=== PATIENT | male | born 1995 | race Two or more races ===

== ENCOUNTER → 2021-01-26 13:45 | Outpatient (BNVA) | payer OTHER, SELFPAY | PROVIDERS: PCP Internal Medicine; Visit Provider Internal Medicine | DX: S51.852A Open bite of left forearm, initial encounter (principal); W50.3XXA Accidental bite by another person, initial encounter | CPT/HCPCS: 36415; 86706; 99203 ==

== ENCOUNTER → 2021-01-28 13:07 | Outpatient (BNVA) | payer OTHER, SELFPAY | PROVIDERS: PCP Internal Medicine; Visit Provider Physician Assistant | DX: S51.852A Open bite of left forearm, initial encounter (principal); W50.3XXA Accidental bite by another person, initial encounter; Z23 Encounter for immunization | CPT/HCPCS: 90746; 99213 ==

== ENCOUNTER → 2021-02-27 08:13 | Outpatient (BNVA) | payer OTHER, SELFPAY | PROVIDERS: PCP Internal Medicine | DX: T14.8XXD Other injury of unspecified body region, subsequent encounter (principal); W50.3XXD Accidental bite by another person, subsequent encounter; Z23 Encounter for immunization ==

== ENCOUNTER → 2021-07-14 14:56 | Outpatient (BNVA) | payer OTHER, SELFPAY | PROVIDERS: PCP Internal Medicine | DX: T14.8XXD Other injury of unspecified body region, subsequent encounter (principal); W50.3XXD Accidental bite by another person, subsequent encounter; Z23 Encounter for immunization | CPT/HCPCS: 99211 ==

== ENCOUNTER → 2024-05-07 15:11 | Outpatient (BNVA) | payer BC, SELFPAY | PROVIDERS: PCP Internal Medicine; Visit Provider Physician Assistant Surgical ==

== ENCOUNTER → 2024-06-01 14:26 | Outpatient (BNVA) | payer OTHER, SELFPAY | PROVIDERS: Visit Provider Physician Assistant Medical | DX: T54.1X1A Toxic effect of other corrosive organic compounds, accidental (unintentional), initial encounter (principal); Y92.9 Unspecified place or not applicable | CPT/HCPCS: 99203 ==

== ENCOUNTER 2025-02-27 05:56 | Emergency (ER) | payer BC, SELFPAY ==
[2025-02-27 06:07] VITALS: BP 116/63; PULSE 109; RESP 16; TEMP 37.3; O2SAT 92; BMI 54.5
--- NOTE | 2025-02-27 06:23 | PC.NURSE ---
Pt comes today with reports of worsening groin rash. Pt seen at 02/26, given two dose of Fluconazole of which he has finished, along with nystation lotion (applied at least 7 times per pt) Pt inner thighs, testical area ivonne, moist, and small blister areas noted, pt reporting those started last night. Denies recent STI exposure, denies and exposure to chemicals/environmental factors. Pt reports pain with urination as well as pain when urinating on skin areas. Call fowler within reach, lights dimmed, pt changed over, basic labs/urine ordered. Pt awaiting ED provider at this time.
[2025-02-27 06:44] LABS: MANUAL DIFF FLAG NO
[2025-02-27 06:45] LABS: Hematocrit 41.9 % (42.0-52.0); Hemoglobin 13.9 g/dl (14.0-18.0); Imm Gran Abs Auto 0.02 X10*3/uL (0.00-0.03); Imm Gran Pct Auto 0.3 % (0.0-0.4); Lymphocytes Absolute Auto 1.8 X10*3/uL (1.2-4.9); Mean Corpuscular HGB Conc 33.2 g/dl (31.0-36.0); Mean Corpuscular Hemoglobin 26.4 pg (27.0-33.0); Mean Corpuscular Volume 79.7 fL (80.0-98.0); NRBC Abs Auto 0.000 X10*3/uL (0.0-0.012); NRBC Pct Auto 0.0 /100WBC (0.0-0.2); Platelet Count 174 X10*3/uL (160-400); Red Blood Count 5.26 X10*6/uL (4.60-5.80); White Blood Count 7.9 X10*3/uL (4.8-10.8)
--- OUTSIDE RECORDS SUMMARY | 2025-02-27 06:51 | XMS_ITS | Clinical Summary ---
Author Organization [facility] Address [address] [place] [phone] Phone Care Team Providers Care Security Flex Officer Name Role Phone Susie Lemus MD Primary Care Provider [phone] Susie Lemus MD Unavailable [phone] Social History Tobacco Use Types Packs/Day Years Used Date Smoking Tobacco: Never Assessed Education Answer Date Recorded Are you interested in more education? Not on [place] e 11/26/2022 Are you concerned about learning? Not on file 11/26/2022 No 11/26/2022 No 11/26/2022 Digital Access Answer Date Recorded No 12/27/2022 No 12/27/2022 No 12/27/2022 Reliable internet access at home? Not on file 12/27/2022 Device with a working camera? Not on file Sex and Gender Information Value Date Recorded Sex Assigned at Not on file Legal Sex Male 8:55 PM EDT Gender Identity Not on file Sexual Orientation Not on file Plan of Treatment Not on file Medical Devices Not on file [facility] [place] [address] [place] [address] HMO POS HMO POS [place] [address] [place] [address] [place] [address] [place] [address] HMO POS HMO POS Care Teams Security Flex Officer Relationship Specialty Start Date End Date Susie Lemus MD [address] [place] [phone] PCP - General Internal Medicine 05/08/18 Susie Lemus MD [address] [place] [phone] Insurance Assigned Provider 11/05/23 Additional Source Comments The information contained in this document represents components of the legal health record. It is not the complete legal health record.[facility]
--- OUTSIDE RECORDS SUMMARY | 2025-02-27 06:51 | XMS_ITS | Encounter Summary ---
Author Organization [facility] Address [address] [place] [address] Phone Care Team Providers Care Improvement Lead Name Role Phone Daniel Hernandez MD Primary Care Provider [phone] Encounter Details Date Type Department Care Team (Late st Contact Info) Description 03/09/2017 Conversion Encounter [facility] - [address], [address] [place] [address] Daniel Hernandez MD [address] [place] [address] Social History Tobacco Use Types Packs/Day Years Used Date Smoking Tobacco: Never Assessed Sex and Gender Information Value Date Recorded Sex Assigned at Not on file Legal Sex Male 11:06 PM EST Gender Identity Not on file Sexual Orientation Not on file documented as of this encounter Plan of Treatment Not on file documented as of this encounter Visit Diagnoses Not on filedocumented in this encounter Care Teams Improvement Lead Relationship Specialty Start Date End Date Daniel Hernandez MD [address] [place] [address] PCP - General 09/21/16 02/15/21 documented as of this encounter
[2025-02-27 06:56] LABS: Anion Gap 13 (12-20); Blood Urea Nitrogen 11 mg/dL (9-16); Calcium 8.4 mg/dL (8.4-10.2); Carbon Dioxide 23 mmol/L (22-29); Chloride 102 mmol/L (96-108); Creatinine Clr Calc Pharmacy 292.9; Estimated Glomerular Filt Rate > 60; Potassium 3.9 mmol/L (3.3-5.1); Sodium 134 mmol/L (135-145)
--- NOTE | 2025-02-27 07:04 | ED.GENADULT ---
HPI - General Adult General Chief complaint: General Medical Stated complaint: yeast infection in groin Time Seen by Provider: 02/27/25 07:04 Source: patient Mode of arrival: ambulatory Limitations: no limitations History of Present Illness ED Provider: [facility] narrative: This is a 30-year-old male with history of morbid obesity presenting with pannus redness in the abdominal folds as well as groin redness around penile area and scrotum, finished 2 dose of fluconazole just started using a statin ointment and he states he is still and discomfort, he reported subjective fevers, no concerns for STI, reports that sexual activities only with oral intercourse. Does not report being a diabetic. Related Data Previous Rx's ?Medication ?Instructions ?Recorded polymyxin B sulfate 10,000 1 drp ophthalmic (eye) QID 7 days 06/01/24 unit-trimethoprim 1 mg/mL eye drops #10 mL cephalexin 500 mg capsule 500 mg PO QID 5 days #20 caps 02/27/25 clotrimazole-betamethasone 1 1 appl topical BID 2 weeks #45 02/27/25 %-0.05 % topical cream grams oxycodone 5 mg tablet 5 mg PO Q6H PRN pain #10 tabs 02/27/25 Allergies Allergy/AdvReac Type Severity Reaction Status Date / Time BEES Allergy Intermediate SWELLING Uncoded 02/27/25 06:12 Review of Systems Constitutional: Constitutional: Reports as per [facility] Past Medical History Surgical History Hx of eye surgery Hx of foot surgery Family History Family History (Updated 05/07/24 @ 15:37 by Dian Skelton CMA) Mother No problems noted. Father Diabetes Social History Social History (Updated 05/07/24 @ 15:37 by Dian Skelton CMA) Unable to assess alcohol history related to: Unknown Alcohol intake: current Alcohol intake frequency: holidays/special occasions only Patient Tobacco Use Status: Never used Tobacco Smoked in Last 30 Days: No Use of substances other than those prescribed or required for medical reasons: No Advance Directives: No Physical Exam ED Vital Signs: Vital Signs - 24 hr 02/27/25 06:07 Temperature 99.1 F Pulse Rate 109 H Respiratory Rate 16 Blood Pressure 116/63 Pulse Oximetry 92 Oxygen Delivery Method Room Air BMI result Body Mass Index 54.5 Const Other: Alert and oriented x4 Pleasant, morbidly obese Abdominal examination is benign, in the abdominal pannus there is obvious evidence for candidal pannus Groin area: I am able to visualize patient's testicles, the penis is involuted, the areas moist, there is no evidence for vesicles, whitish discharge and erythematous testicles, no subcutaneous emphysema, of the buttocks and the perianal area without any erythema, no erythema of the thighs no purulence Testicles themselves are non swollen, scrotal sac as the only area that is involved without underlying edema or drainage or necrosis Medical Decision Making Medical Decision Making MDM Narrative: Fairly difficult to examine patient's groin area, the penis itself has not been visualize it is currently involuted, patient states that he is able to typically palpate his penis but the area has been irritated for the past 2 days, I have considered herpes, but there was no evidence for that, there was no evidence for Crystal's gangrene, and no evidence for any testicular torsion, any abscesses I am going to start him on both oral antibiotics to prevent superinfection, but also continue with the statin in the falls and clotrimazole and betamethasone with some pain medications as he is in discomfort, he is nonfebrile, see my discharge instructions regarding skin care Differential Diagnosis Differential Diagnoses: The differential diagnosis associated with the presentation includes (Yeast infection, Crystal's gangrene, cellulitis, herpes outbreak) Admission/Observation Consideration of admission/observation: Escalation of care including admission/observation considered 2022 Emergency Medicine Coding Guide from [employer] on 02/27/2025 All calculations should be rechecked by clinician prior to use RESULT SUMMARY: 4 Estimated Level of Service Problems: Moderate (4) Risk: Moderate (4) Data: Limited (3) NARRATIVE MDM: This patient's problem complexity is Moderate as patient: has an acute illness with systemic symptoms. This patient's risk is Moderate due to: overall presentation requiring evaluation for a potentially Moderate-risk process. This patient's data complexity is Limited. INPUTS: Number and Complexity ?> 6 = 4: acute illness w/systemic sx (f) Risk level ?> 3 = Moderate Tests ordered ?> 1 = 1 Tests results reviewed (excluding labs) ?> 1 = 1 Prior external notes reviewed ?> 0 = 0 Assessment requiring and independent historian ?> 0 = No Independent interpretation of tests ?> 0 = No Discussed management/test interpretation w/external professional ?> 0 = No Lab Data 02/27/25 06:40 02/27/25 06:40 Labs: Lab Results 02/27/25 Range/Units 06:40 WBC 7.9 (4.8-10.8) X10*3/uL RBC 5.26 (4.60-5.80) X10*6/uL Hgb 13.9 L (14.0-18.0) g/dl Hct 41.9 L (42.0-52.0) % MCV 79.7 L (80.0-98.0) fL MCH 26.4 L (27.0-33.0) pg MCHC 33.2 (31.0-36.0) g/dl RDW 13.7 (11.0-16.0) % Plt Count 174 (160-400) X10*3/uL MPV 9.5 (9.4-12.4) fL Immature Gran % (Auto) 0.3 (0.0-0.4) % Neut % (Auto) 63.7 (45-73) % Lymph % (Auto) 23.2 (20-40) % [place] % (Auto) 12.2 H (2-11) % Eos % (Auto) 0.3 (0-4) % Baso % (Auto) 0.3 (0-2) % Lymph # (Auto) 1.8 (1.2-4.9) X10*3/uL [place] # (Auto) 1.0 (0.1-1.2) X10*3/uL Eos # (Auto) 0.0 (0.0-0.4) X10*3/uL Baso # (Auto) 0.0 (0.0-0.2) X10*3/uL Abs Immat Gran (auto) 0.02 (0.00-0.03) X10*3/uL Absolute Neuts (auto) 5.1 (2.0-8.3) x10*3/uL Absolute Nucleated RBC 0.000 (0.0-0.012) X10*3/uL Nucleated RBC % (auto) 0.0 (0.0-0.2) /100WBC Sodium 134 L (135-145) mmol/L Potassium 3.9 (3.3-5.1) mmol/L Chloride 102 (96-108) mmol/L Carbon Dioxide 23 (22-29) mmol/L Anion Gap 13 (12-20) BUN 11 (9-16) mg/dL Creatinine 0.60 (0.5-1.4) mg/dL Estim Creat Clear Calc 292.9 Estimated GFR > 60 Random Glucose 233 H (60-115) mg/dL Calcium 8.4 (8.4-10.2) mg/dL Discharge Plan Discharge Clinical Impression: Skin yeast infection Patient Disposition: Home, Self-Care Instructions: Skin Yeast Infection (ED) Additional Instructions: Your presenting with a yeast infection in the abdominal fold area and the groin area, this is likely due to recent heat, currently your groin area is quite swollen as I discussed I was able to visualize testicles but not the penis, but the exam is consistent with yeast infection or essentially jock itch, part of the issues that the area so moist and so I recommend that you come home you get into a shower your wash the area with some type of shampoo that is not going to burn , soap and water, and then really take your time to carefully pad the area fully dry as well as getting into your penile falls even if you have to use a Q-tip,, and then I would like you to use clotrimazole ointment that has a steroid twice a day, this is not going to improve overnight, this we will take 4-5 days start start getting better but if you do not get a dry it is just going to continue being an issue, I am also starting you on antibiotics I do not think you have cellulitis but this is just in case there is supra infection, take Tylenol 975 mg every 6 hours needed for pain, ibuprofen 400 mg every 6 hours as needed for pain, use oxycodone only if you are not able to sleep, and if you have worsening symptoms concerns come back to the ER. Prescriptions: New cephalexin 500 mg capsule 500 mg PO QID 5 Days Qty: 20 0RF clotrimazole-betamethasone 1-0.05 % cream 1 appl topical BID 14 Days Qty: 45 0RF oxycodone 5 mg tablet 5 mg PO Q6H PRN (Reason: pain) Qty: 10 0RF Rx Instructions: Partial Fill upon patient request. No Action polymyxin B sulf-trimethoprim 10,000 unit- 1 mg/mL drops 1 drp ophthalmic (eye) QID 7 Days Qty: 10 0RF Print Language: Fijian
[2025-02-27] MEDS: Lidocaine 4 % Cream KIT 1 APPL TOPICAL (08:13)
[2025-02-27 08:25] VITALS: BP 116/63; PULSE 109; RESP 16; TEMP 37.3; O2SAT 92
== END 2025-02-27 08:28 | disposition home or self-care (01) ==
PROVIDERS: Emergency Provider Emergency Medicine
DX: B37.2 Candidiasis of skin and nail (principal); R21 Rash and other nonspecific skin eruption
CPT/HCPCS: 36415; 80048; 85025; 96372; 99284; J1885; J8540

== ENCOUNTER 2025-03-01 10:13 | Inpatient (IN) | payer BC, SELFPAY ==
--- NOTE | ~2025-03-01 | US_ITS ---
CLINICAL HISTORY: Scrotal swelling, erythema, pain, and fungal infec US SCROTUM WITH DOPPLER Comparison: CT/SR - CT ABDOMEN PELVIS WO IV CON - 03/03/25 08:54 EDT Findings: Right testicle normal echotexture, 4.5 x 2.9 x 2.6 cm. Left testicle normal echotexture, 4.5 x 3.4 x 3.5 cm. Normal color flow and arterial/venous spectral tracing of both testicles. 2 mm left epididymal head cyst. No epididymal head hyperemia. The right epididymal body and tail are not well seen. No hydroceles or varicoceles. Diffuse scrotal wall edema measures up to 1.3 cm in thickness on the right and 0.9 cm on the left. IMPRESSION: 1. Scrotal wall edema. No suspicious echogenic foci that can be seen with necrotizing fasciitis. 2. No acute testicular torsion. 3. No acute epididymo-orchitis where visualized. The right epididymis is incompletely seen. 4. No abnormal fluid collection. This document has been electronically signed by: Cassie Mejia DO on 03/03/2025 14:35:52
--- NOTE | ~2025-03-01 | CT_ITS ---
CLINICAL HISTORY: Worsening intrigenous and scrotal infection CT abdomen and pelvis without contrast Comparison: None provided Findings: Note should be made that this CT does not include the scrotum. The liver is enlarged and low in attenuation. The gallbladder, spleen, adrenal glands and pancreas are unremarkable. Kidneys, ureters and bladder are within normal limits. No bowel obstruction, free air, free fluid or abscess. Abnormally enlarged inguinal lymph nodes are present bilaterally. No acute osseous finding. Impression: Abnormally enlarged inguinal lymph nodes bilaterally. Otherwise no acute process. Note should be made that the scrotum is not included on this study. This document has been electronically signed by: Bairon Brand MD on 03/03/2025 09:47:08
[2025-03-01 10:55] VITALS: BP 126/74; PULSE 98; RESP 18; TEMP 36.7; O2SAT 95; BMI 55.2
[2025-03-01 11:00] VITALS: BP 126/74; PULSE 98; RESP 18; TEMP 36.7; O2SAT 95
--- NOTE | 2025-03-01 11:04 | ED_ITS ---
HPI - General Adult General Chief complaint: Skin/Abscess/Foreign Body Stated complaint: rash not getting better was seen on 02/27 Time Seen by Provider: 03/01/25 11:04 History of Present Illness ED Provider: Nubia ESCAMILLA narrative: The patient is a morbidly obese 30-year-old male who has been having problems with a perineal yeast infection for about a week. He was seen 4 days ago at an urgent care center and was diagnosed with a yeast balanitis and involvement of his scrotum. He was prescribed fluconazole and nystatin ointment. He took his 1st dose of fluconazole 3 days ago on Tuesday and a 2nd dose 2 days ago on Tuesday. He was not improving and he came to the emergency room here 2 days ago on Tuesday. At the emergency room visit he had lab work done that showed a glucose of 233. He does not have a history of diabetes and is on no medication. He was prescribed cephalexin and clotrimazole betamethasone. He has started the cephalexin. He says that the clotrimazole betamethasone was not available at the pharmacy yesterday but should to be available today. He was prescribed oxycodone because he has been having a lot of pain. Today he felt that there were a lot of white spots on his scrotum and in the perineal area generally. He was alarmed at this development and returned to the emergency room. He does not know if he has had a fever. No definite shaking chills. He says urination is painful because the entire area is excoriated and his penis is involuted. He says he is able to urinate however. The patient is a canales male who does not engage in anal intercourse. He does not engage in oral sex. Related Data Previous Rx's ?Medication ?Instructions ?Recorded polymyxin B sulfate 10,000 1 drp ophthalmic (eye) QID 7 days 06/01/24 unit-trimethoprim 1 mg/mL eye drops #10 mL cephalexin 500 mg capsule 500 mg PO QID 5 days #20 cap s 02/27/25 clotrimazole-betamethasone 1 1 appl topical BID 2 week s #45 02/27/25 %-0.05 % topical cream grams oxycodone 5 mg tablet 5 mg PO Q6H PRN pain #10 tab s 02/27/25 Allergies Allergy/AdvReac Type Severity Reaction Status Date / Time BEES Allergy Intermediate SWELLING Uncoded 03/01/25 10:59 Review of Systems 2 Review of Systems: Yes all other systems are reviewed and are negative [facility] Past Medical History Surgical History Hx of eye surgery Hx of foot surgery Family History Family History (Updated 05/07/24 @ 15:37 by Dian Skelton CMA) Mother No problems noted. Father Diabetes Social History Social History (Updated 05/07/24 @ 15:37 by Dian Skelton CMA) Unable to assess alcohol history related to: Unknown Alcohol intake: current Alcohol intake frequency: holidays/special occasions only Patient Tobacco Use Status: Never used Tobacco Smoked in Last 30 Days: No Use of substances other than those prescribed or required for medical reasons: No Advance Directives: No Advance Directives Information Provided: Yes Do you have a plan to hurt others: No Plan Physical Exam ED Vital Signs: Vital Signs - 24 hr 03/01/25 10:55 03/01/25 11:00 03/01/25 13:02 Temperature 98.1 F 98.1 F Pulse Rate 98 98 93 Respiratory Rate 18 18 18 Blood Pressure 126/74 126/74 149/77 H Pulse Oximetry 95 95 96 Oxygen Delivery Method Room Air Room Air Room Air BMI result Body Mass Index 55.2 Const Other: The patient is a very large 30-year-old male who was awake and alert, pleasant and cooperative. He looks mildly unwell and uncomfortable. HENMT Other: The face is symmetrical. ?Mucous membranes moist. Eyes Other: Pupils are round equal, conjunctivae are clear, extraocular movements intact Neck Neck: Yes normal visual inspection, Yes full ROM and Yes no lymphadenopathy Resp Effort & Inspection: normal respiratory effort Auscultation: clear to auscultation bilaterally Cardio Rate: regular rate Rhythm: regular rhythm Heart sounds: S1 normal heart sound present and S2 normal heart sound present GI Other: The patient has a very large abdomen with pannus folds in the lower abdomen. The abdomen is soft and nontender. The pannus folds seem to have some minimal intertrigo. Other: The patient has an involuted penis which I was unable to visualize. The scrotum is excoriated as is a lot of perineal skin generally. There are whitish plaques on the excoriated skin. Skin Other: The patient has some intertrigo in pannus folds in the lower abdomen and in the inguinal creases. The skin of the scrotum is excoriated with white patches and there is some associated excoriation of the surrounding skin. I was unable to visualize the penis which is involuted. Neuro Other: The patient is awake and alert with a normal mental status. Cranial nerves 2-12 are intact. He moves his extremities normally and appropriately. He is neurologically intact. Extrem Other: Extremities are unremarkable. No calf swelling or tenderness. Medical Decision Making Medical Decision Making [facility] Narrative: The patient is an obese 30-year-old male who was not improving despite attempts at outpatient management of a severe perineal (scrotal and penile) candidal skin infection. He has been on both oral fluconazole and topical antifungals. I believe that the manifestation of the yeast infection has worsened despite this treatment. This is likely because he has previously undiagnosed type 2 diabetes. His blood sugars in the 230s. His hemoglobin A1c is 10.8. He is not on any diabetic medications. He also has no primary care doctor. The patient does not seem septic. He does not have an elevated white count or left shift. I think this is all primarily a difficult to manage candidal infection given his obesity and his involuted penis. Local hygiene is difficult. I discussed the case with Dr. Valentino of Infectious Disease and with Dr. Jared zuluaga of Urology. Ultimately I feel the patient would be best served by hospitalization. I think his likelihood of managing this as an outpatient successfully is very low. I therefore contacted the hospitalist and the patient will be admitted. Lab Data 03/01/25 12:03 03/01/25 12:03 Labs: Lab Results 03/01/25 Range/Units 12:03 WBC 6.9 (4.8-10.8) X10*3/uL RBC 5.34 (4.60-5.80) X10*6/uL Hgb 14.2 (14.0-18.0) g/dl Hct 41.9 L (42.0-52.0) % MCV 78.5 L (80.0-98.0) fL MCH 26.6 L (27.0-33.0) pg MCHC 33.9 (31.0-36.0) g/dl RDW 13.6 (11.0-16.0) % Plt Count 191 (160-400) X10*3/uL MPV 9.1 L (9.4-12.4) fL Immature Gran % (Auto) 0.4 (0.0-0.4) % Neut % (Auto) 57.7 (45-73) % Lymph % (Auto) 31.4 (20-40) % [place] % (Auto) 10.0 (2-11) % Eos % (Auto) 0.1 (0-4) % Baso % (Auto) 0.4 (0-2) % Lymph # (Auto) 2.2 (1.2-4.9) X10*3/uL [place] # (Auto) 0.7 (0.1-1.2) X10*3/uL Eos # (Auto) 0.0 (0.0-0.4) X10*3/uL Baso # (Auto) 0.0 (0.0-0.2) X10*3/uL Abs Immat Gran (auto) 0.03 (0.00-0.03) X10*3/uL Absolute Neuts (auto) 4.0 (2.0-8.3) x10*3/uL Absolute Nucleated RBC 0.000 (0.0-0.012) X10*3/uL Nucleated RBC % (auto) 0.0 (0.0-0.2) /100WBC Sodium 138 (135-145) mmol/L Potassium 3.8 (3.3-5.1) mmol/L Chloride 103 (96-108) mmol/L Carbon Dioxide 25 (22-29) mmol/L Anion Gap 14 (12-20) BUN 14 (9-16) mg/dL Creatinine 0.64 (0.5-1.4) mg/dL Estim Creat Clear Calc 276.6 Estimated GFR > 60 Random Glucose 238 H (60-115) mg/dL Estimat Average Glucose 263 mg/dL Hemoglobin A1c % 10.8 H (<6.0) % Lactic Acid 1.5 (0.5-2.0) mmol/L Calcium 9.0 D (8.4-10.2) mg/dL Total Bilirubin 0.6 (0.0-1.0) mg/dL Direct Bilirubin 0.3 (0.0-0.5) mg/dL AST 73 H (5-37) U/L ALT 62 H (0-40) U/L Alkaline Phosphatase 63 (39-117) U/L C-Reactive Protein 2.15 H (< or = 0.50) mg/dL Total Protein 7.7 (6.5-8.0) g/dL Albumin 4.1 (3.5-5.0) g/dL Discharge Plan Discharge Clinical Impression: Candidiasis of perineum, Uncontrolled diabetes mellitus with hyperglycemia Patient Disposition: Home, Self-Care
--- OUTSIDE RECORDS SUMMARY | 2025-03-01 11:07 | XMS_ITS | Clinical Summary ---
Author Organization [facility] Address [address] [place] [phone] Phone Care Team Providers Care Pension Agent Name Role Phone Susie Lemus MD Primary Care Provider [phone] Susie Lemus MD Unavailable [phone] Social History Tobacco Use Types Packs/Day Years [...] file Medical Devices Not on file [facility] [place] [place] [address] [place] [address] HMO POS HMO POS HMO POS [place] [address] [place] [address] [place] [address] [place] [address] HMO POS HMO POS Care Teams Pension Agent Relationship Specialty Start Date End Date Susie Lemus MD [address] [place] [phone] PCP - General Internal Medicine 05/08/18 Susie Lemus MD [address] [place] [phone] Insurance Assigned Provider 11/05/23 Additional Source Comments The information contained in this document represents components of the legal health record. It is not the complete legal health record.[facility]
--- OUTSIDE RECORDS SUMMARY | 2025-03-01 11:07 | XMS_ITS | Encounter Summary ---
Author Organization [facility] Address [address] [place] [address] Phone Care Team Providers Care Body Cleaner Name Role Phone Daniel Hernandez MD Primary Care Provider [phone] Encounter Details Date Type Department Care Team (Late st Contact Info) Description 03/09/2017 Conversion Encounter [facility] - [address], [address] [place] [address] Daniel Hernandez MD [address] [place] [phone] Social History Tobacco Use Types Packs/Day Years [...] on filedocumented in this encounter Care Teams Body Cleaner Relationship Specialty Start Date End Date Daniel Hernandez MD [address] [place] [address] PCP - General 09/21/16 02/15/21 documented as of this encounter
[2025-03-01 12:09] LABS: MANUAL DIFF FLAG NO
[2025-03-01 12:11] LABS: Hematocrit 41.9 % (42.0-52.0); Hemoglobin 14.2 g/dl (14.0-18.0); Imm Gran Abs Auto 0.03 X10*3/uL (0.00-0.03); Imm Gran Pct Auto 0.4 % (0.0-0.4); Lymphocytes Absolute Auto 2.2 X10*3/uL (1.2-4.9); Mean Corpuscular HGB Conc 33.9 g/dl (31.0-36.0); Mean Corpuscular Hemoglobin 26.6 pg (27.0-33.0); Mean Corpuscular Volume 78.5 fL (80.0-98.0); NRBC Abs Auto 0.000 X10*3/uL (0.0-0.012); NRBC Pct Auto 0.0 /100WBC (0.0-0.2); Platelet Count 191 X10*3/uL (160-400); Red Blood Count 5.34 X10*6/uL (4.60-5.80); White Blood Count 6.9 X10*3/uL (4.8-10.8)
[2025-03-01 12:33] LABS: Hemoglobin A1C 351.2819 umol/L; Total Hemoglobin (HGBA1C) 3702.5379 umol/L
[2025-03-01 12:48] LABS: Alanine Aminotransferase 62 U/L (0-40); Albumin Level 4.1 g/dL (3.5-5.0); Alkaline Phosphatase 63 U/L (39-117); Anion Gap 14 (12-20); Aspartate Amino Transferase 73 U/L (5-37); Blood Urea Nitrogen 14 mg/dL (9-16); Calcium 9.0 mg/dL (8.4-10.2); Carbon Dioxide 25 mmol/L (22-29); Chloride 103 mmol/L (96-108); Creatinine Clr Calc Pharmacy 276.6; Estimated Glomerular Filt Rate > 60; Potassium 3.8 mmol/L (3.3-5.1); Sodium 138 mmol/L (135-145); Total Protein 7.7 g/dL (6.5-8.0)
[2025-03-01 13:02] VITALS: BP 149/77; PULSE 93; RESP 18; O2SAT 96
--- NOTE | 2025-03-01 14:23 | P.HPHOSP_ITS ---
History of Present Illness Date of Service: 03/01/25 Attending physician on admission: Dre Hernandez Chief Complaint: Scrotal redness Pt is a 30-year-old male with no reported significant PMH who presents to the ED with?worsening scrotal swelling, rash, and pain. Pt initially noticed a red and pruritic rash on his scrotum and groin on Tuesday. Tried home antifungal creams to no effect. Rash worsened and became painful and malodorous. Subjective fevers. Presented to urgent care on Tuesday and prescribed nystatin cream and oral fluconazole. Symptoms persisted despite treatment and pt then presented to the ED on Tuesday where he was prescribed cephalexin and clotrimazole betamethasone cream. Pt found no relief from treatment and yesterday rash developed white plaques, so pt re-presented today due to worsening symptoms. Currently denies fever or chills. No other systemic symptoms. ED provider contacted both Infectious Disease and Urology who both felt major concern was to achieve diabetic control. Recommendation was for topical clotrimazole and fluconazole x5 days. In the ED pt was afebrile but with elevated HR of 98. Labs were significant for random glucose 238, A1c 10.8, AST 73, and ALT 62, CRP 2.15. UA pending. Pt was treated in the ED with IVF. Pt is admitted to the hospital for treatment and further evaluation of candidal intertrigo that failed outpatient therapy and in the setting of new onset type 2 diabetes. Review of Systems 2 Review of Systems: Negative except for that which is stated in the HPI. [facility] Family History (Updated 05/07/24 @ 15:37 by Dian Skelton CMA) Mother No problems noted. Father Diabetes Surgical History Hx of eye surgery Hx of foot surgery Social History (Updated 05/07/24 @ 15:37 by Dian Skelton CMA) Household Members: None Housing: Apartment Do you presently have visiting nurse or other home services: No Unable to assess alcohol history related to: Unknown Alcohol intake: current Alcohol intake frequency: holidays/special occasions only Patient Tobacco Use Status: Never used Tobacco Smoked in Last 30 Days: No Use of substances other than those prescribed or required for medical reasons: No Have you been hit, kicked, punched, or otherwise hurt by someone within the past year? If so, by whom?: No Do you feel safe in your current relationship?: Yes Is there a partner from a previous relationship who is making you feel unsafe now?: No Are you made to feel afraid or neglected: No Advance Directives: No Advance Directives Information Provided: Yes Do you have a plan to hurt others: No Plan Recently lost weight without trying: No Eating poorly because of decreased appetite: No Nutrition Risks: No Nutritional Risk Poor oral hygiene: No Meds Allergies Allergy/AdvReac Type Severity Reaction Status Date / Time BEES Allergy Intermediate SWELLING Uncoded 03/01/25 10:59 Active Medications: Current Medications Lactated Ringer's (Lr) 1,000 mls @ 999 mls/hr IV .Q1H1M KENDRA Stop: 03/01/25 15:15 Physical Exam 2 Vital Signs and Narrative: Vital Signs: Last Vital Signs Temp 98.1 F 03/01/25 11:00 Pulse 93 03/01/25 13:02 Resp 18 03/01/25 13:02 BP 149/77 H 03/01/25 13:02 Pulse Ox 96 03/01/25 13:02 O2 Del Method Room Air 03/01/25 13:02 BMI result Body Mass Index 55.2 General: AOx3, no acute distress Resp: CTA bilaterally CVS: S1, S2, RRR GI: +BS, NT, no distention, obesee Skin: Warm, dry Neuro: Cranial nerves II-XII grossly intact bilaterally. Motor grossly intact bilaterally : As pictured below Extremities: No edema Psych: Appropriate affect Results Labs 03/01/25 12:03 03/01/25 12:03 Labs: Laboratory Results - last 24 hr 03/01/25 12:03 MCV 78.5 L MCH 26.6 L MCHC 33.9 RDW 13.6 Plt Count 191 MPV 9.1 L Immature Gran % (Auto) 0.4 Neut % (Auto) 57.7 Lymph % (Auto) 31.4 [place] % (Auto) 10.0 Eos % (Auto) 0.1 Baso % (Auto) 0.4 Lymph # (Auto) 2.2 [place] # (Auto) 0.7 Eos # (Auto) 0.0 Baso # (Auto) 0.0 Abs Immat Gran (auto) 0.03 Absolute Neuts (auto) 4.0 Absolute Nucleated RBC 0.000 Nucleated RBC % (auto) 0.0 Anion Gap 14 Estim Creat Clear Calc 276.6 Estimated GFR > 60 Random Glucose 238 H Estimat Average Glucose 263 Hemoglobin A1c % 10.8 H Lactic Acid 1.5 Calcium 9.0 D Total Bilirubin 0.6 Direct Bilirubin 0.3 AST 73 H ALT 62 H Alkaline Phosphatase 63 C-Reactive Protein 2.15 H Total Protein 7.7 Albumin 4.1 Assessment and Plan (1) Candidiasis of perineum: Status: Acute Plan Pt is a 30-year-old male with no reported significant PMH who presents to the ED with?worsening scrotal swelling, rash, and pain. Pt is admitted to the hospital for treatment and further evaluation of candidal intertrigo that failed outpatient therapy and in the setting of new onset type 2 diabetes. Candidal intertrigo Erythema, swelling, tenderness, and white plaques on scrotum and intertriginous folds Failed outpatient therapy at urgent care on Tuesday and ED on Tuesday Likely worsened by uncontrolled diabetes and obesity class III Will treat with topical ketoconazole b.i.d., fluconazole 200 mg x1 then 100 mg daily x4 days Symptomatic treatment New onset diabetes type 2 A1c 10.8, POC 238 Will start metformin 500 mg b.i.d. and Jardiance 100 mg daily Monitor POCs Diabetic diet Will need to establish with new PCP for outpatient diabetic management Transaminitis AST 73 and ALT 62, alk-phos WNL, baseline unclear Pt without abdominal pain Trend labs Obesity class III BMI 55.2 Weight loss encouraged Would benefit from GLP-1 meds Full Code Attending:?Dr. Hernandez DVT Prophylaxis: Lovenox Pt will require a hospitalization of at least two nights for treatment of?worsening candidal intertrigo that failed outpatient therapy likely due to uncontrolled new onset diabetes. Quality Stroke Does the patient have a stroke diagnosis?: No VTE Prior VTE?: No VTE Risk Level:: Medical - moderate - high VTE Device Contraindication: Treatment Not Indicated VTE Drug Contraindication: N/A - Med Ordered
--- NOTE | 2025-03-01 14:26 | PHA.MEDREC ---
Addendum entered by Marie Randall RPh 03/01/25 14:31: Reviewed by [facility] Original Note: Pharmacy Consult ? Medication Reconciliation Pharmacy has completed the medication reconciliation.Spoke to patient. patient confirmed he completed his dose for nystatin and fluconazole 150 mg. Medications last taken this morning.
[2025-03-01] MEDS: Lactated Ringers 1,000 ML 999 ML IV (14:59)
[2025-03-01 15:46] VITALS: BP 131/63; PULSE 94; RESP 18; O2SAT 93
[2025-03-01 15:56] LABS: Appearance Urine Clear; Glucose Urine UA 250 mg/dL (Negative); PH 5.5 (5.0-9.0); Specific Gravity - Urine >= 1.030 (1.005-1.025); UMIC TRIGGER UACC YES
[2025-03-01 15:58] LABS: UACC Culture Trigger YES
[2025-03-01] MEDS: oxyCODONE HCl Immed Release 5 MG TABLET PO (16:06)
[2025-03-01 17:00] LABS: Glucose, Whole Blood 165 mg/dL (60-115)
--- NOTE | 2025-03-01 17:48 | PC.NURSE ---
Pt arrived to unit via stretcher. A/Ox4. Denies pain at this time. POC 165. Po meds given per SEP. See ED photo for scrotum and perineum excoriation. Family at bedside. Pt requesting literature regarding diabetes- printed and given to pt
[2025-03-01 19:24] VITALS: BP 150/62; PULSE 94; RESP 19; TEMP 36.3; O2SAT 92
[2025-03-01] MEDS: 0.9 % Sodium Chloride Flush 3 ML SYRINGE IVFLUSH (20:19)
[2025-03-01 20:29] LABS: Glucose, Whole Blood 172 mg/dL (60-115)
[2025-03-01] MEDS: Clotrimazole 1 % Cream 15 GM TUBE 1 APPL TOPICAL (21:38)
[2025-03-02] MEDS: oxyCODONE HCl Immed Release 5 MG TABLET PO ×2 (00:21→08:17)
[2025-03-02 03:31] LABS: Glucose, Whole Blood 145 mg/dL (60-115)
[2025-03-02 03:37] VITALS: BP 135/77; PULSE 84; RESP 20; TEMP 36.3; O2SAT 92
[2025-03-02 06:43] VITALS: BP 152/90; PULSE 99; RESP 16; TEMP 36.6; O2SAT 93
[2025-03-02 06:51] LABS: Alanine Aminotransferase 72 U/L (0-40); Albumin Level 4.1 g/dL (3.5-5.0); Alkaline Phosphatase 65 U/L (39-117); Anion Gap 15 (12-20); Aspartate Amino Transferase 91 U/L (5-37); Blood Urea Nitrogen 13 mg/dL (9-16); Calcium 8.8 mg/dL (8.4-10.2); Carbon Dioxide 27 mmol/L (22-29); Chloride 101 mmol/L (96-108); Creatinine Clr Calc Pharmacy 260.3; Estimated Glomerular Filt Rate > 60; Potassium 3.8 mmol/L (3.3-5.1); Sodium 139 mmol/L (135-145); Total Protein 7.8 g/dL (6.5-8.0)
[2025-03-02 07:00] LABS: Glucose, Whole Blood 139 mg/dL (60-115)
[2025-03-02 07:04] LABS: HIV Num 1 0.05 S/CO (0.00-0.99)
[2025-03-02] MEDS: 0.9 % Sodium Chloride Flush 3 ML SYRINGE IVFLUSH ×3 (08:15→19:57)
[2025-03-02] MEDS: Clotrimazole 1 % Cream 15 GM TUBE 1 APPL TOPICAL ×2 (09:30→19:58)
[2025-03-02 11:15] LABS: Glucose, Whole Blood 223 mg/dL (60-115)
--- NOTE | 2025-03-02 12:25 | HO.PM.IMPN ---
Subjective Subjective Date of Service: 03/02/25 Interval History: Seen and evaluated this morning Some improvement to pain and swelling No acute events overnight Denies abd pain UA positive for UTI Review of Systems Review of Systems: Yes all other systems are reviewed and are negative Physical Exam Exam: Exam: General: AOx3, no acute distress Resp: CTA bilaterally CVS: S1, S2, RRR GI: +BS, NT, no distention, obese Skin: Warm, dry Neuro: Cranial nerves II-XII grossly intact bilaterally. Motor grossly intact bilaterally : Continued swelling, erythema, and tenderness to groin, scrotum, and in intertriginous folds; a few scattered white plaques, though improved exam Extremities: No edema Psych: Appropriate affect Vital Signs: Vital Signs: Last Vital Signs Temp 98 F 03/02/25 06:43 Pulse 99 03/02/25 06:43 Resp 16 03/02/25 06:43 BP 152/90 H 03/02/25 06:43 Pulse Ox 93 03/02/25 06:43 O2 Del Method Room Air 03/02/25 06:43 BMI result Body Mass Index 55.2 Objective Data Active Medications Acetaminophen (Acetaminophen 325 Mg Tablet) 650 mg PO Q6H PRN PRN Reason: Pain, Mild 1-3,fever,headache Last Admin: 03/02/25 00:21 Dose: 650 mg Documented By: PATRICIA Calcium Carbonate (Calcium Carbonate 750 Mg Tab.Chew) 750 mg PO Q4H PRN PRN Reason: Heartburn Clotrimazole (Clotrimazole 1 % Cream 15 Gm Tube) 1 appl TOPICAL BID [facility]; Protocol Last Admin: 03/02/25 09:30 Dose: 1 appl Documented By: CELSO Magnesium Hydroxide (Milk Of Magnesia 30 Ml Oral.Susp) 30 ml PO DAILY PRN PRN Reason: Constipation Melatonin (Melatonin 3 Mg Tablet) 6 mg PO BEDTIME PRN PRN Reason: Insomnia Metformin HCl (Metformin Hcl 500 Mg Tablet) 500 mg PO BIDWM [facility] Last Admin: 03/02/25 08:14 Dose: 500 mg Documented By: CELSO Morphine Sulfate (Morphine Sulfate 4 Mg/Ml Cartridge) 4 mg IVPUSH Q4H PRN; Protocol PRN Reason: Pain, Severe (Pain Scale 7-10) Last Admin: 03/02/25 11:01 Dose: 4 mg Documented By: CELSO Oxycodone HCl (Oxycodone Hcl Immed Release 5 Mg Tablet) 5 mg PO Q6H PRN PRN Reason: Pain, Moderate(Pain Scale 4-6) Last Admin: 03/02/25 08:17 Dose: 5 mg Documented By: CELSO Sitagliptin Phosphate (Sitagliptin Phosphate 100 Mg Tablet) 100 mg PO DAILY [facility] Last Admin: 03/02/25 08:14 Dose: 100 mg Documented By: CELSO Sodium Chloride (0.9 % Sodium Chloride Flush 3 Ml Syringe) 3 ml IVFLUSH QSHIFT [facility] Last Admin: 03/02/25 08:15 Dose: 3 ml Documented By: CELSO Labs 03/01/25 12:03 03/02/25 05:51 Labs: Laboratory Results - last 24 hr 03/01/25 03/01/25 03/01/25 12:03 15:49 16:53 Hold Purple Top Anion Gap 14 Estim Creat Clear Calc 276.6 Estimated GFR > 60 POC Glucose 165 H Random Glucose 238 H Estimat Average Glucose 263 Hemoglobin A1c % 10.8 H Lactic Acid 1.5 Calcium 9.0 D Total Bilirubin 0.6 Direct Bilirubin 0.3 AST 73 H ALT 62 H Alkaline Phosphatase 63 C-Reactive Protein 2.15 H Total Protein 7.7 Albumin 4.1 Urine Color Dark Yellow Urine Appearance Clear Urine pH 5.5 Ur Specific [place] >= 1.030 H Urine Protein 30 (1+) H Urine Glucose (UA) 250 H Urine Ketones Trace Urine Blood Trace H Urine Nitrite Negative Ur Leukocyte Esterase Moderate (2+) H Urine RBC 3-5 H Urine WBC 21-50 H Ur Squamous Epith Cells 0-2 Urine Bacteria Trace Hyaline Casts 0-2 HIV 1&2 Ab/P24 Ag 4thGn 03/01/25 03/02/25 03/02/25 20:24 03:27 05:51 Hold Purple Top SEE NOTE Anion Gap 15 Estim Creat Clear Calc 260.3 Estimated GFR > 60 POC Glucose 172 H 145 H Random Glucose 144 H Estimat Average Glucose Hemoglobin A1c % Lactic Acid Calcium 8.8 Total Bilirubin 0.6 Direct Bilirubin AST 91 H ALT 72 H Alkaline Phosphatase 65 C-Reactive Protein Total Protein 7.8 Albumin 4.1 Urine Color Urine Appearance Urine pH Ur Specific [place] Urine Protein Urine Glucose (UA) Urine Ketones Urine Blood Urine Nitrite Ur Leukocyte Esterase Urine RBC Urine WBC Ur Squamous Epith Cells Urine Bacteria Hyaline Casts HIV 1&2 Ab/P24 Ag 4thGn Nonreactive 03/02/25 03/02/25 06:45 11:07 Hold Purple Top Anion Gap Estim Creat Clear Calc Estimated GFR POC Glucose 139 H 223 H Random Glucose Estimat Average Glucose Hemoglobin A1c % Lactic Acid Calcium Total Bilirubin Direct Bilirubin AST ALT Alkaline Phosphatase C-Reactive Protein Total Protein Albumin Urine Color Urine Appearance Urine pH Ur Specific [place] Urine Protein Urine Glucose (UA) Urine Ketones Urine Blood Urine Nitrite Ur Leukocyte Esterase Urine RBC Urine WBC Ur Squamous Epith Cells Urine Bacteria Hyaline Casts HIV 1&2 Ab/P24 Ag 4thGn Microbiology Microbiology Results: Microbiology 03/01/25 Unknown Urine Culture - Preliminary Urine clean catch - Clean Catch Midstream No growth to date. Assessment and Plan (1) Candidiasis of perineum: Status: Acute Plan Pt is a 30-year-old male with no reported significant PMH who presents to the ED with?worsening scrotal swelling, rash, and pain. Pt is admitted to the hospital for treatment and further evaluation of candidal intertrigo that failed outpatient therapy and in the setting of new onset type 2 diabetes. Candidal intertrigo Erythema, swelling, tenderness, and white plaques on scrotum and intertriginous folds Failed outpatient therapy at urgent care on Tuesday and ED on Tuesday Likely worsened by uncontrolled diabetes and obesity class III Slightly improved from prior Continue topical ketoconazole b.i.d., fluconazole 100 mg daily x4 days Symptomatic treatment New onset diabetes type 2 A1c 10.8 Started on metformin 500 mg b.i.d. and Jardiance 100 mg daily Monitor POCs Diabetic diet Will need to establish with new PCP for outpatient diabetic management UTI UA concerning for acute UTI Will treat with ceftriaxone, day 1 No sepsis Follow urine cultures Transaminitis Mildly elevated AST 91 and ALT 72, alk-phos WNL, baseline unclear Pt without abdominal pain Trend labs Obesity class III BMI 55.2 Weight loss encouraged Would benefit from GLP-1 meds Full Code DVT Prophylaxis: Lovenox Will require continued hospitalization for treatment of?worsening candidal intertrigo that failed oupatient therapy likely due to uncontrolled new onset diabetes. Quality Stroke Does the patient have a stroke diagnosis?: No VTE Prior VTE?: No VTE Risk Level:: Medical - moderate - high VTE Device Contraindication: Treatment Not Indicated VTE Drug Contraindication: N/A - Med Ordered
--- NOTE | 2025-03-02 14:59 | MHC.CM.PN ---
PT REPORTS HE LIVES ALONE, BUT HAS BEEN STAYING WITH FAMILY HE HAS HAD DIFFICULTY GETTING UP AND DOWN THE STAIRS AT HOME HE IS INDEPENDENT WITH CARE, HAS NO SERVICES AND USES A CPAP FOR DME HE IS UNABLE TO HAVE HIS CPAP BROUGHT INTO [facility] [place] PT DOES NOT HAVE A PCP, HE IS REQUESTING AN APPT WITH [facility] IF POSSIBLE, BROCHURE ALSO PROVIDED DECLINES A HCP DCP: HOME VIA PRIVATE TRANSPORT
[2025-03-02 15:32] VITALS: BP 119/54; PULSE 106; RESP 20; TEMP 38.8; O2SAT 91
[2025-03-02 16:31] LABS: Glucose, Whole Blood 216 mg/dL (60-115)
[2025-03-02 18:46] LABS: Glucose, Whole Blood 188 mg/dL (60-115)
--- NOTE | 2025-03-02 18:59 | PM.EVENT ---
Event Note Date of Service: 03/02/25 Event Note: Notified by nursing that pt has spiked fever of 102. Pt also tachycardic at 106 and with active infection. BP 118/54. Will repeat blood cultures and get lactic acid. Pt currently being treated with broad-spectrum antibiotics. We will continue to monitor fever and BP, and adjust antibiotics tomorrow if pt continues to be febrile or according to culture culture sensitivities. Time Spent With Patient Time: Total time managing care of this patient today ____ minutes.
[2025-03-02 19:49] VITALS: BP 117/58; PULSE 109; RESP 16; TEMP 37.4; O2SAT 91
[2025-03-02 20:50] LABS: Glucose, Whole Blood 191 mg/dL (60-115)
[2025-03-02] MEDS: Lactated Ringers 1,000 ML 50 ML IVCONT (21:46)
[2025-03-02 21:59] LABS: Reflex Lactate? Lactic Acid Added
[2025-03-02 22:02] VITALS: PULSE 115; RESP 18; O2SAT 92
--- NOTE | 2025-03-02 22:06 | PC.NURSE ---
2030 Lactic acid 2.2 notified by lab ordered IV fluids LR at 50/hr.
[2025-03-02 22:39] LABS: ~Lactic Acid-LAB USE ONLY 1.0 mmol/L (0.5-2.0)
[2025-03-02 23:57] VITALS: BP 151/84; PULSE 108; RESP 20; TEMP 37.3; O2SAT 92
[2025-03-03 03:40] VITALS: BP 129/85; PULSE 109; RESP 20; TEMP 37; O2SAT 92
[2025-03-03 07:02] VITALS: BP 158/80; PULSE 92; RESP 15; TEMP 37; O2SAT 96
[2025-03-03 07:07] LABS: Glucose, Whole Blood 158 mg/dL (60-115)
[2025-03-03 07:45] LABS: Alanine Aminotransferase 57 U/L (0-40); Albumin Level 3.8 g/dL (3.5-5.0); Alkaline Phosphatase 60 U/L (39-117); Anion Gap 14 (12-20); Aspartate Amino Transferase 55 U/L (5-37); Blood Urea Nitrogen 10 mg/dL (9-16); Calcium 8.7 mg/dL (8.4-10.2); Carbon Dioxide 25 mmol/L (22-29); Chloride 102 mmol/L (96-108); Creatinine Clr Calc Pharmacy 310.5; Estimated Glomerular Filt Rate > 60; Hematocrit 41.7 % (42.0-52.0); Hemoglobin 13.9 g/dl (14.0-18.0); Mean Corpuscular HGB Conc 33.3 g/dl (31.0-36.0); Mean Corpuscular Hemoglobin 26.3 pg (27.0-33.0); Mean Corpuscular Volume 79.0 fL (80.0-98.0); NRBC Abs Auto 0.000 X10*3/uL (0.0-0.012); NRBC Pct Auto 0.0 /100WBC (0.0-0.2); Platelet Count 212 X10*3/uL (160-400); Potassium 3.6 mmol/L (3.3-5.1); Red Blood Count 5.28 X10*6/uL (4.60-5.80); Sodium 137 mmol/L (135-145); Total Protein 7.4 g/dL (6.5-8.0); White Blood Count 9.3 X10*3/uL (4.8-10.8)
[2025-03-03] MEDS: 0.9 % Sodium Chloride Flush 3 ML SYRINGE IVFLUSH ×2 (08:05→22:31)
[2025-03-03] MEDS: vancomycin/NS 2,000 MG/500 ML PLAST..BAG 250 MG IV (08:27)
--- NOTE | 2025-03-03 09:28 | PHA.PROG ---
Addendum entered by Ivy Garcia tucker 03/03/25 09:30: next trough 03/04 Original Note: Admission Date/Time: March 01, 2025 14:08 Indication: skin and skin structure Weight in k.4 kg Adjusted body weight in Kg: Hamer body weight in Kg: Obesity Dosing Indication % IBW: BMI 55.2 Serum Creatinine - Last 168 Hours 03/01/25 03/02/25 03/03/25 12:03 05:51 06:46 Creatinine 0.64 0.68 0.57 Estimated CrCl and GFR - Last 168 Hours 03/01/25 03/02/25 03/03/25 12:03 05:51 06:46 Estim Creat Clear Calc 276.6 260.3 310.5 Estimated GFR > 60 > 60 > 60 Vancomycin Loading Dose: 2000mg X1 Current Vancomycin Dosing Regimen: 1750mg Q8H Vancomycin Monitoring using AUC goal of 400 - 600 range with trough as surrogate marker: 494 Date and Time for next Vancomycin Level to be drawn: 03/03 @0700 Pharmacist Comments on Vancomycin Plan: Starting off with 1750mg Q8H to target trough of 14. Pt's BMI is very high but renal is good. To be adjusted after trough tomorrow AM. Vancomycin dosing will take advantage of [employer] as a clinical decision support tool that uses Bayesian modeling to calculate individual patient's pharmacokinetic parameters and forecast the patient's drug concentration time course with the target goal AUC 24 range of 400 - 600 mg/L/hr.
--- NOTE | 2025-03-03 10:40 | PM.UROCN ---
History of Present Illness Consult details Consult date: 03/03/25 Narrative: Called to evaluate due to worsening candidiasis Patient newly diagnosed diabetic 30-year-old male with no reported significant PMH who presents to the ED with?worsening scrotal swelling, rash, and pain. Pt initially noticed a red and pruritic rash on his scrotum and groin on Tuesday. Tried home antifungal creams to no effect. Rash worsened and became painful and malodorous. Subjective fevers. Presented to urgent care on Tuesday and prescribed nystatin cream and oral fluconazole. Symptoms persisted despite treatment and pt then presented to the ED on Tuesday where he was prescribed cephalexin and clotrimazole betamethasone cream. Pt found no relief from treatment and yesterday rash developed white plaques, so pt re-presented today due to worsening symptoms. Currently denies fever or chills. No other systemic symptoms. [facility] Family History Family History (Updated 05/07/24 @ 15:37 by Dian Skelton CMA) Mother No problems noted. Father Diabetes Surgical History Surgical History Hx of eye surgery Hx of foot surgery Social History Social History (Updated 05/07/24 @ 15:37 by Dian Skelton CMA) Household Members: None Housing: Apartment Do you presently have visiting nurse or other home services: No Unable to assess alcohol history related to: Unknown Alcohol intake: current Alcohol intake frequency: holidays/special occasions only Patient Tobacco Use Status: Never used Tobacco Smoked in Last 30 Days: No Use of substances other than those prescribed or required for medical reasons: No Currently Displaying Signs/Symptoms of Drug Intoxication Withdrawal: No Have you been hit, kicked, punched, or otherwise hurt by someone within the past year? If so, by whom?: No Do you feel safe in your current relationship?: Yes Is there a partner from a previous relationship who is making you feel unsafe now?: No Are you made to feel afraid or neglected: No Advance Directives: No Advance Directives Information Provided: Yes Do you have a plan to hurt others: No Plan Recently lost weight without trying: No Eating poorly because of decreased appetite: No Nutrition Risks: No Nutritional Risk Poor oral hygiene: No service: No Meds Allergies Allergy/AdvReac Type Severity Reaction Status Date / Time BEES Allergy Intermediate SWELLING Uncoded 03/01/25 10:59 Active Medications: Current Medications Acetaminophen (Acetaminophen 325 Mg Tablet) 650 mg PO Q6H PRN PRN Reason: Pain, Mild 1-3,fever,headache Last Admin: 03/02/25 18:45 Dose: 650 mg Calcium Carbonate (Calcium Carbonate 750 Mg Tab.Chew) 750 mg PO Q4H PRN PRN Reason: Heartburn Clotrimazole (Clotrimazole 1 % Cream 15 Gm Tube) 1 appl TOPICAL BID [facility]; Protocol Last Admin: 03/03/25 10:23 Dose: Not Given Dextrose (Dextrose 50 % 25 Gm/50 Ml Syringe) 25 gm IVPUSH Q15M PRN; Protocol PRN Reason: per Hypoglycemia Standing Ord. Glucose (Glucose Gel 15 Gm Gel..Gram.) 15 gm PO Q15M PRN; Protocol PRN Reason: per Hypoglycemia Standing Ord. Lactated Ringer's (Lr) 1,000 mls @ 50 mls/hr IVCONT .Q20H [facility] Last Admin: 03/02/25 21:46 Dose: 50 mls/hr Piperacillin Sod/Tazobactam (Sod 3.375 gm/ Sodium Chloride) 50 mls @ 100 mls/hr IV Q6H [facility] Vancomycin HCl 1,000 mg/Vancomycin HCl 750 mg/ Sodium Chloride 535 mls @ 267.5 mls/hr IV Q8H [facility] Insulin Human Lispro (Insulin Lispro 100 Unit/Ml 3 Ml Vial) 0 unit SUBCUT QIDACHS [facility]; Protocol Last Admin: 03/03/25 07:39 Dose: 2 unit Magnesium Hydroxide (Milk Of Magnesia 30 Ml Oral.Susp) 30 ml PO DAILY PRN PRN Reason: Constipation Melatonin (Melatonin 3 Mg Tablet) 6 mg PO BEDTIME PRN PRN Reason: Insomnia Metformin HCl (Metformin Hcl 500 Mg Tablet) 500 mg PO BIDWM [facility] Last Admin: 03/03/25 07:39 Dose: 500 mg Morphine Sulfate (Morphine Sulfate 4 Mg/Ml Cartridge) 4 mg IVPUSH Q4H PRN; Protocol PRN Reason: Pain, Severe (Pain Scale 7-10) Last Admin: 03/03/25 02:08 Dose: 4 mg Oxycodone HCl (Oxycodone Hcl Immed Release 5 Mg Tablet) 5 mg PO Q6H PRN PRN Reason: Pain, Moderate(Pain Scale 4-6) Last Admin: 03/02/25 08:17 Dose: 5 mg Pharmacy Consult (Consult Rx Vancomycin Dosing) 1 each MISCELLANE DAILY PRN PRN Reason: Consult order Sitagliptin Phosphate (Sitagliptin Phosphate 100 Mg Tablet) 100 mg PO DAILY [facility] Last Admin: 03/03/25 07:39 Dose: 100 mg Sodium Chloride (0.9 % Sodium Chloride Flush 3 Ml Syringe) 3 ml IVFLUSH QSHIFT [facility] Last Admin: 03/03/25 08:05 Dose: 3 ml Physical Exam Vital Signs: Vital Signs: Last Vital Signs Temp 98.6 F 03/03/25 07:02 Pulse 92 03/03/25 07:02 Resp 15 03/03/25 07:02 BP 158/80 H 03/03/25 07:02 Pulse Ox 96 03/03/25 07:02 O2 Del Method Room Air 03/03/25 07:02 BMI result Body Mass Index 55.2 Results Labs 03/03/25 06:46 03/03/25 06:46 Labs: Abnormal lab results 03/02/25 03/02/25 03/02/25 Range/Units 11:07 16:23 18:42 Hgb (14.0-18.0) g/dl Hct (42.0-52.0) % MCV (80.0-98.0) fL MCH (27.0-33.0) pg MPV (9.4-12.4) fL POC Glucose 223 H 216 H 188 H (60-115) mg/dL Random Glucose (60-115) mg/dL Lactic Acid (0.5-2.0) mmol/L AST (5-37) U/L ALT (0-40) U/L 03/02/25 03/02/25 03/03/25 Range/Units 19:40 20:46 06:46 Hgb 13.9 L (14.0-18.0) g/dl Hct 41.7 L (42.0-52.0) % MCV 79.0 L (80.0-98.0) fL MCH 26.3 L (27.0-33.0) pg MPV 9.0 L (9.4-12.4) fL POC Glucose 191 H (60-115) mg/dL Random Glucose 170 H (60-115) mg/dL Lactic Acid 2.2 H* (0.5-2.0) mmol/L AST 55 H (5-37) U/L ALT 57 H (0-40) U/L 03/03/25 Range/Units 07:01 Hgb (14.0-18.0) g/dl Hct (42.0-52.0) % MCV (80.0-98.0) fL MCH (27.0-33.0) pg MPV (9.4-12.4) fL POC Glucose 158 H (60-115) mg/dL Random Glucose (60-115) mg/dL Lactic Acid (0.5-2.0) mmol/L AST (5-37) U/L ALT (0-40) U/L Short CBC 03/03/25 Range/Units 06:46 WBC 9.3 (4.8-10.8) X10*3/uL Hgb 13.9 L (14.0-18.0) g/dl Hct 41.7 L (42.0-52.0) % Plt Count 212 (160-400) X10*3/uL BMP 03/03/25 06:46 Sodium 137 Potassium 3.6 Chloride 102 Carbon Dioxide 25 BUN 10 Creatinine 0.57 Calcium 8.7 Liver Function 03/03/25 Range/Units 06:46 Total Bilirubin 0.9 (0.0-1.0) mg/dL AST 55 H (5-37) U/L ALT 57 H (0-40) U/L Alkaline Phosphatase 60 (39-117) U/L Albumin 3.8 (3.5-5.0) g/dL Urine 03/01/25 Range/Units 15:49 Urine Color Dark Yellow Urine Appearance Clear Urine pH 5.5 (5.0-9.0) Ur Specific [place] >= 1.030 H (1.005-1.025) Urine Protein 30 (1+) H (Neg-Trace) mg/dL Urine Glucose (UA) 250 H (Negative) mg/dL All other labs normal. Imaging Additional studies: Date of Service: 03/03/25 Procedure(s): CT abdomen pelvis wo IV con Accession Number(s): [id number] cc: Dave Rose; Physician,None ~ Report Number: [id number]: Total DLP = 1939.00 mGy-cm CLINICAL HISTORY: Worsening intrigenous and scrotal infection CT abdomen and pelvis without contrast Comparison: None provided Findings: Note should be made that this CT does not include the scrotum. The liver is enlarged and low in attenuation. The gallbladder, spleen, adrenal glands and pancreas are unremarkable. Kidneys, ureters and bladder are within normal limits. No bowel obstruction, free air, free fluid or abscess. Abnormally enlarged inguinal lymph nodes are present bilaterally. No acute osseous finding. Impression: Abnormally enlarged inguinal lymph nodes bilaterally. Otherwise no acute process. Note should be made that the scrotum is not included on this study. Procedures Date of Service Date of Service: 03/03/25
[2025-03-03 11:08] LABS: Glucose, Whole Blood 194 mg/dL (60-115)
--- NOTE | 2025-03-03 12:53 | HO.PM.IMPN ---
Subjective Subjective Date of Service: 03/03/25 Interval History: Still feeling warm though no repeat fevers Pain is better Nursing noticed possible draining pus when cleaning this morning No N/V/D Denies abd pain Pt endorsed SI without plan to nursing Review of Systems Review of Systems: Yes all other systems are reviewed and are negative Physical Exam Exam: Exam: General: AOx3, no acute distress. Looks uncomfortable Resp: CTA bilaterally CVS: S1, S2, RRR GI: +BS, NT, no distention, obese Skin: Warm, dry Neuro: Cranial nerves II-XII grossly intact bilaterally. Motor grossly intact bilaterally : Continued swelling, erythema, and tenderness to groin, scrotum, and in intertriginous folds; swelling of left side of scrotum greater than right. Satelittle lesions Extremities: No edema Psych: Flat affect Vital Signs: Vital Signs: Last Vital Signs Temp 98.6 F 03/03/25 07:02 Pulse 92 03/03/25 07:02 Resp 15 03/03/25 07:02 BP 158/80 H 03/03/25 07:02 Pulse Ox 96 03/03/25 07:02 O2 Del Method Room Air 03/03/25 07:02 BMI result Body Mass Index 55.2 Objective Data Active Medications Acetaminophen (Acetaminophen 325 Mg Tablet) 650 mg PO Q6H PRN PRN Reason: Pain, Mild 1-3,fever,headache Last Admin: 03/03/25 11:00 Dose: 650 mg Documented By: CELSO Calcium Carbonate (Calcium Carbonate 750 Mg Tab.Chew) 750 mg PO Q4H PRN PRN Reason: Heartburn Clotrimazole (Clotrimazole 1 % Cream 15 Gm Tube) 1 appl TOPICAL BID [facility]; Protocol Last Admin: 03/03/25 10:23 Dose: Not Given Documented By: CELSO Non-Admin Reason: Patient Refused Dextrose (Dextrose 50 % 25 Gm/50 Ml Syringe) 25 gm IVPUSH Q15M PRN; Protocol PRN Reason: per Hypoglycemia Standing Ord. Glucose (Glucose Gel 15 Gm Gel..Gram.) 15 gm PO Q15M PRN; Protocol PRN Reason: per Hypoglycemia Standing Ord. Lactated Ringer's (Lr) 1,000 mls @ 50 mls/hr IVCONT .Q20H [facility] Last Admin: 03/02/25 21:46 Dose: 50 mls/hr Documented By: PATRICIA Vancomycin HCl 1,000 mg/Vancomycin HCl 750 mg/ Sodium Chloride 535 mls @ 267.5 mls/hr IV Q8H [facility] Piperacillin Sod/Tazobactam (Sod 3.375 gm/ Sodium Chloride) 50 mls @ 100 mls/hr IV Q6H [facility] Last Infusion: 03/03/25 12:35 Dose: Infused Documented By: CELSO Insulin Human Lispro (Insulin Lispro 100 Unit/Ml 3 Ml Vial) 0 unit SUBCUT QIDACHS [facility]; Protocol Last Admin: 03/03/25 11:54 Dose: 2 unit Documented By: CELSO Magnesium Hydroxide (Milk Of Magnesia 30 Ml Oral.Susp) 30 ml PO DAILY PRN PRN Reason: Constipation Melatonin (Melatonin 3 Mg Tablet) 6 mg PO BEDTIME PRN PRN Reason: Insomnia Metformin HCl (Metformin Hcl 500 Mg Tablet) 500 mg PO BIDWM [facility] Last Admin: 03/03/25 07:39 Dose: 500 mg Documented By: CELSO Morphine Sulfate (Morphine Sulfate 4 Mg/Ml Cartridge) 4 mg IVPUSH Q4H PRN; Protocol PRN Reason: Pain, Severe (Pain Scale 7-10) Last Admin: 03/03/25 10:53 Dose: 4 mg Documented By: CELSO Oxycodone HCl (Oxycodone Hcl Immed Release 5 Mg Tablet) 5 mg PO Q6H PRN PRN Reason: Pain, Moderate(Pain Scale 4-6) Last Admin: 03/02/25 08:17 Dose: 5 mg Documented By: CELSO Pharmacy Consult (Consult Rx Vancomycin Dosing) 1 each MISCELLANE DAILY PRN PRN Reason: Consult order Sitagliptin Phosphate (Sitagliptin Phosphate 100 Mg Tablet) 100 mg PO DAILY [facility] Last Admin: 03/03/25 07:39 Dose: 100 mg Documented By: CELSO Sodium Chloride (0.9 % Sodium Chloride Flush 3 Ml Syringe) 3 ml IVFLUSH QSHIFT [facility] Last Admin: 03/03/25 08:05 Dose: 3 ml Documented By: CELSO Labs 03/03/25 06:46 03/03/25 06:46 Labs: Laboratory Results - last 24 hr 03/02/25 03/02/25 03/02/25 16:23 18:42 19:40 MCV MCH MCHC RDW Plt Count MPV Absolute Nucleated RBC Nucleated RBC % (auto) Hold Purple Top SEE NOTE Anion Gap Estim Creat Clear Calc Estimated GFR POC Glucose 216 H 188 H Random Glucose Lactic Acid 2.2 H* Lactic Acid F/U @ 2Hr Calcium Total Bilirubin AST ALT Alkaline Phosphatase Total Protein Albumin 03/02/25 03/02/25 03/03/25 20:46 22:20 06:46 MCV 79.0 L MCH 26.3 L MCHC 33.3 RDW 13.8 Plt Count 212 MPV 9.0 L Absolute Nucleated RBC 0.000 Nucleated RBC % (auto) 0.0 Hold Purple Top Anion Gap 14 Estim Creat Clear Calc 310.5 Estimated GFR > 60 POC Glucose 191 H Random Glucose 170 H Lactic Acid Lactic Acid F/U @ 2Hr 1.0 Calcium 8.7 Total Bilirubin 0.9 AST 55 H ALT 57 H Alkaline Phosphatase 60 Total Protein 7.4 Albumin 3.8 03/03/25 03/03/25 07:01 10:58 MCV MCH MCHC RDW Plt Count MPV Absolute Nucleated RBC Nucleated RBC % (auto) Hold Purple Top Anion Gap Estim Creat Clear Calc Estimated GFR POC Glucose 158 H 194 H Random Glucose Lactic Acid Lactic Acid F/U @ 2Hr Calcium Total Bilirubin AST ALT Alkaline Phosphatase Total Protein Albumin Microbiology Microbiology Results: Microbiology 03/01/25 Unknown Urine Culture - Final Urine clean catch - Clean Catch Midstream Streptococcus viridans group 03/01/25 12:03 Blood Culture - Preliminary Blood - Venous No growth after 24 hours. 03/01/25 12:03 Blood Culture - Preliminary Blood - Venous No growth after 24 hours. Assessment and Plan (1) Candidiasis of perineum: Status: Acute Plan Pt is a 30-year-old male with no reported significant PMH who presents to the ED with?worsening scrotal swelling, rash, and pain. Pt is admitted to the hospital for treatment and further evaluation of candidal intertrigo that failed outpatient therapy and in the setting of new onset type 2 diabetes. Candidal intertrigo Erythema, swelling, tenderness, and white plaques on scrotum and intertriginous folds Failed outpatient therapy at urgent care on Tuesday and ED on Tuesday Likely worsened by uncontrolled diabetes and obesity class III Nursing noticed possible pus when cleaning this morning CT of abd/pelvis showing abnormally enlarged inguinal lymph nodes bilaterally, likely reactionary Continue topical ketoconazole b.i.d., fluconazole 100 mg daily x4 days Urology consultation We will get scrotal U/S Symptomatic treatment Sepsis Pt met sepsis criteria with fever and tachycardia yesterday evening Repeat blood cx drawn, lactic acid 2.2 with repeat 1.0 after IVF; no hypotension Antibiotics switched to vanc and Zosyn, day 1 Blood culture so far negative after 24 hours Suicidal ideation Pt endorsed SI without plan to nursing Has been ongoing for quite a while though duration unclear Has outpatient therapist he sees weekly; has not endorsed SI to them Not on any mood stabalizers 1:1 sitter; safety tray Care team eval once medically cleared New onset diabetes type 2 A1c 10.8 Started on metformin 500 mg b.i.d. and Jardiance 100 mg daily Monitor POCs Diabetic diet, SSI Will need to establish with new PCP for outpatient diabetic management UTI UA concerning for acute UTI; pt with dysuria Initially treated with cefriaxone, now on vanc and zosyn as above Urine cultures with strep viridans [id number] Transaminitis Mildly elevated, improving, baseline unclear Pt without abdominal pain Likely secondary to fatty liver Obesity class III BMI 55.2 Weight loss encouraged Would benefit from GLP-1 meds Full Code DVT Prophylaxis: Lovenox Will require continued hospitalization for treatment of?worsening candidal intertrigo that failed oupatient therapy likely due to uncontrolled new onset diabetes. Quality Stroke Does the patient have a stroke diagnosis?: No VTE Prior VTE?: No VTE Risk Level:: Medical - moderate - high VTE Device Contraindication: Treatment Not Indicated VTE Drug Contraindication: N/A - Med Ordered
--- NOTE | 2025-03-03 14:52 | PC.NURSE ---
1200-pt reporting feeling depressed with thoughts of self harm. Pt reports no plan. Dave MANCERA made aware. ripper operator and Nursing cranberry bog supervisor made aware. 1:1 sitter at bedside. PA at bedside. Pt belongings secured in locker on [address].
[2025-03-03 16:00] VITALS: BP 137/88; PULSE 95; RESP 18; TEMP 36.6; O2SAT 91
[2025-03-03] MEDS: Lactated Ringers 1,000 ML 50 ML IVCONT (16:20)
[2025-03-03 16:34] LABS: Glucose, Whole Blood 191 mg/dL (60-115)
[2025-03-03] MEDS: vancomycin HCL 1,000 MG, vancomycin HCL 750 MG in 0.9 % Sodium Chloride 500 ML 267.5 MG IV (17:45)
[2025-03-03 19:31] VITALS: BP 137/85; PULSE 100; RESP 20; TEMP 36.7; O2SAT 93
[2025-03-03 20:51] LABS: Glucose, Whole Blood 182 mg/dL (60-115)
[2025-03-03] MEDS: Clotrimazole 1 % Cream 15 GM TUBE 1 APPL TOPICAL (22:31)
[2025-03-04 00:40] VITALS: RESP 20
[2025-03-04] MEDS: vancomycin HCL 1,000 MG, vancomycin HCL 750 MG in 0.9 % Sodium Chloride 500 ML 267.5 MG IV (00:47)
[2025-03-04 03:27] VITALS: BP 140/85; PULSE 97; RESP 18; TEMP 36.5; O2SAT 93
[2025-03-04 07:07] VITALS: BP 131/87; PULSE 98; RESP 16; TEMP 36.7; O2SAT 93
[2025-03-04 07:16] LABS: Glucose, Whole Blood 180 mg/dL (60-115)
[2025-03-04 07:28] LABS: Creatinine Clr Calc Pharmacy 276.6; Estimated Glomerular Filt Rate > 60
[2025-03-04 07:32] VITALS: BP 131/87; PULSE 98; RESP 16; TEMP 36.7; O2SAT 93
[2025-03-04] MEDS: 0.9 % Sodium Chloride Flush 3 ML SYRINGE IVFLUSH (07:49)
--- NOTE | 2025-03-04 08:05 | PC.NURSE ---
Attempt to place IV x 2, unable, Primary rn notified.
--- NOTE | 2025-03-04 08:11 | HE.PHANOTE ---
VANCO DOSE ADJUSTMENT BASED ON SCR AND TROUGH OF 12.5 DOSE DECREASED TO 1500 Q 8H. NEXT LEVEL 03/05 @ 0600
[2025-03-04] MEDS: Clotrimazole 1 % Cream 15 GM TUBE 1 APPL TOPICAL ×2 (09:14→21:43)
--- NOTE | 2025-03-04 10:28 | MHC.CM.PN ---
PER MD ROUNDS, PT AWAITING AN ID CONSULT HE WILL ALSO NEED CARE TEAM CLEARANCE ONCE MEDICALLY CLEARED DCP PENDING CARE TEAM EVCHARLENE
[2025-03-04 11:17] LABS: Glucose, Whole Blood 185 mg/dL (60-115)
[2025-03-04 15:20] VITALS: BP 136/84; PULSE 90; RESP 18; TEMP 36.6; O2SAT 92
--- NOTE | 2025-03-04 16:21 | W.PM.IDCN ---
History of Present Illness Data of Consult Service Date: 03/04/25 Requesting physician: Dave Rose Primary Care Provider: None Physician HPI Reason for consult: scrotal erythema He has pain for last week in scrotal area. He has some white lesions on scrotum and intertriginous. He had temperature to 102 and came in. He received treatment for presumed fungal infection and didnt get better with Diflucan. Review of Systems Review of Systems: Yes all other systems are reviewed and are negative PMFSH Past Medical History Medical History (Updated 03/04/25 @ 16:24 by Estela Valentino MD) Acute pain in scrotum Family History Family History Mother No problems noted. Father Diabetes Surgical History Surgical History Hx of eye surgery Hx of foot surgery Social History Social History Household Members: None Housing: Apartment Do you presently have visiting nurse or other home services: No Unable to assess alcohol history related to: Unknown Alcohol intake: current Alcohol intake frequency: holidays/special occasions only Comment: sitter for SI Patient Tobacco Use Status: Never used Tobacco Smoked in Last 30 Days: No Use of substances other than those prescribed or required for medical reasons: No Currently Displaying Signs/Symptoms of Drug Intoxication Withdrawal: No Have you been hit, kicked, punched, or otherwise hurt by someone within the past year? If so, by whom?: No Do you feel safe in your current relationship?: Yes Is there a partner from a previous relationship who is making you feel unsafe now?: No Are you made to feel afraid or neglected: No Advance Directives: No Advance Directives Information Provided: Yes Do you have a plan to hurt others: No Plan Recently lost weight without trying: No Eating poorly because of decreased appetite: No Nutrition Risks: No Nutritional Risk Poor oral hygiene: No service: No Meds Allergies Allergy/AdvReac Type Severity Reaction Status Date / Time BEES Allergy Intermediate SWELLING Uncoded 03/01/25 10:59 Active Medications: Current Medications Acetaminophen (Acetaminophen 325 Mg Tablet) 650 mg PO Q6H PRN PRN Reason: Pain, Mild 1-3,fever,headache Last Admin: 03/03/25 11:00 Dose: 650 mg Calcium Carbonate (Calcium Carbonate 750 Mg Tab.Chew) 750 mg PO Q4H PRN PRN Reason: Heartburn Clotrimazole (Clotrimazole 1 % Cream 15 Gm Tube) 1 appl TOPICAL BID [facility]; Protocol Last Admin: 03/04/25 09:14 Dose: 1 appl Dextrose (Dextrose 50 % 25 Gm/50 Ml Syringe) 25 gm IVPUSH Q15M PRN; Protocol PRN Reason: per Hypoglycemia Standing Ord. Glucose (Glucose Gel 15 Gm Gel..Gram.) 15 gm PO Q15M PRN; Protocol PRN Reason: per Hypoglycemia Standing Ord. Piperacillin Sod/Tazobactam (Sod 3.375 gm/ Sodium Chloride) 50 mls @ 100 mls/hr IV Q6H [facility] Last Infusion: 03/04/25 12:50 Dose: Infused Vancomycin HCl 1,500 mg/ (Sodium Chloride) 500 mls @ 333.333 mls/hr IV Q8H [facility] Last Infusion: 03/04/25 11:23 Dose: Infused Insulin Human Lispro (Insulin Lispro 100 Unit/Ml 3 Ml Vial) 0 unit SUBCUT QIDACHS [facility]; Protocol Last Admin: 03/04/25 12:04 Dose: 2 unit Magnesium Hydroxide (Milk Of Magnesia 30 Ml Oral.Susp) 30 ml PO DAILY PRN PRN Reason: Constipation Melatonin (Melatonin 3 Mg Tablet) 6 mg PO BEDTIME PRN PRN Reason: Insomnia Metformin HCl (Metformin Hcl 500 Mg Tablet) 500 mg PO BIDWM [facility] Last Admin: 03/04/25 07:49 Dose: 500 mg Morphine Sulfate (Morphine Sulfate 4 Mg/Ml Cartridge) 4 mg IVPUSH Q4H [facility]; Protocol PRN Reason: Pain, Severe (Pain Scale 7-10) Last Admin: 03/04/25 09:57 Dose: 4 mg Oxycodone HCl (Oxycodone Hcl Immed Release 5 Mg Tablet) 5 mg PO Q6H PRN PRN Reason: Pain, Moderate(Pain Scale 4-6) Last Admin: 03/02/25 08:17 Dose: 5 mg Pharmacy Consult (Consult Rx Vancomycin Dosing) 1 each MISCELLANE DAILY PRN PRN Reason: Consult order Sitagliptin Phosphate (Sitagliptin Phosphate 100 Mg Tablet) 100 mg PO DAILY [facility] Last Admin: 03/04/25 07:49 Dose: 100 mg Sodium Chloride (0.9 % Sodium Chloride Flush 3 Ml Syringe) 3 ml IVFLUSH QSHIFT [facility] Last Admin: 03/04/25 07:49 Dose: 3 ml Physical Exam Vital Signs: Vital Signs: Last Vital Signs Temp 97.8 F 03/04/25 15:20 Pulse 90 03/04/25 15:20 Resp 18 03/04/25 15:20 BP 136/84 03/04/25 15:20 Pulse Ox 92 03/04/25 15:20 O2 Del Method Room Air 03/04/25 15:20 BMI result Body Mass Index 55.2 Const: General: cooperative HEENT: Head: Yes normal to inspection Face and sinus: Yes normal facial exam Mouth: Normal oral and palatal mucosa present Teeth and gingiva: dentition normal Eyes: General: appearance normal, both eyes and all related structures Pupils: Equal, round and reactive pupils present Resp: Effort & Inspection: normal respiratory effort Cardio: Rate: regular rate Rhythm: regular rhythm GI: Palpation (GI): Soft to palpation and nontender : Other: scrotum small white spots some erythema General: Yes no CVA tenderness Back/Spine/Pelvis: Back: no CVA tenderness Skin: General skin exam: no rashes or lesions noted Neuro: General: moves all extremities Cranial nerves: Yes Equal, round and reactive pupils present Extrem: General: Yes normal to inspection Psych: Appearance: grossly normal Results Labs 03/03/25 06:46 03/04/25 06:50 Labs: BMP 03/04/25 06:50 Creatinine 0.64 Microbiology Microbiology Results: Microbiology 03/02/25 19:40 Blood - Venous Blood Culture - Preliminary No growth after 24 hours. 03/02/25 19:40 Blood - Venous Blood Culture - Preliminary No growth after 24 hours. 03/01/25 12:03 Blood - Venous Blood Culture - Preliminary No growth after 48 hours. 03/01/25 12:03 Blood - Venous Blood Culture - Preliminary No growth after 48 hours. 03/01/25 Unknown Urine clean catch - Clean Catch Midstream Urine Culture - Final Streptococcus viridans group Assessment and Plan (1) Uncontrolled diabetes mellitus with hyperglycemia: Status: Acute (2) Acute pain in scrotum: Status: Acute Plan He has possible jhonny but didnt respond to Diflucan. There could be some folliculitis with new onset DM. He had fever,no signs necrotizing fasciitis. Would give po Doxycycline and Augmentin for a week cover above possible cellulitis
[2025-03-04 16:22] LABS: Glucose, Whole Blood 141 mg/dL (60-115)
--- NOTE | 2025-03-04 16:32 | HO.PM.IMPN ---
Subjective Subjective Date of Service: 03/04/25 Interval History: No acute events overnight Reports pain improved Currently denies SI or HI, though still feeling depressed No fever or chills Denies abdominal pain Has had some nausea with morphine, no vomiting Review of Systems Review of Systems: Yes all other systems are reviewed and are negative Physical Exam Exam: Exam: General: AOx3, no acute distress. Looks uncomfortable Resp: CTA bilaterally CVS: S1, S2, RRR GI: +BS, NT, no distention, obese Skin: Warm, dry Neuro: Cranial nerves II-XII grossly intact bilaterally. Motor grossly intact bilaterally : Continued swelling, erythema, and tenderness to groin, scrotum, and in intertriginous folds with mild improvement; satellite lesions Extremities: No edema Psych: Flat affect Vital Signs: Vital Signs: Last Vital Signs Temp 97.8 F 03/04/25 15:20 Pulse 90 03/04/25 15:20 Resp 18 03/04/25 15:20 BP 136/84 03/04/25 15:20 Pulse Ox 92 03/04/25 15:20 O2 Del Method Room Air 03/04/25 15:20 BMI result Body Mass Index 55.2 Objective Data Active Medications Acetaminophen (Acetaminophen 325 Mg Tablet) 650 mg PO Q6H PRN PRN Reason: Pain, Mild 1-3,fever,headache Last Admin: 03/03/25 11:00 Dose: 650 mg Documented By: CELSO Calcium Carbonate (Calcium Carbonate 750 Mg Tab.Chew) 750 mg PO Q4H PRN PRN Reason: Heartburn Clotrimazole (Clotrimazole 1 % Cream 15 Gm Tube) 1 appl TOPICAL BID KENDRA; Protocol Last Admin: 03/04/25 09:14 Dose: 1 appl Documented By: CELSO Dextrose (Dextrose 50 % 25 Gm/50 Ml Syringe) 25 gm IVPUSH Q15M PRN; Protocol PRN Reason: per Hypoglycemia Standing Ord. Glucose (Glucose Gel 15 Gm Gel..Gram.) 15 gm PO Q15M PRN; Protocol PRN Reason: per Hypoglycemia Standing Ord. Piperacillin Sod/Tazobactam (Sod 3.375 gm/ Sodium Chloride) 50 mls @ 100 mls/hr IV Q6H [facility] Last Infusion: 03/04/25 12:50 Dose: Infused Documented By: CELSO Vancomycin HCl 1,500 mg/ (Sodium Chloride) 500 mls @ 333.333 mls/hr IV Q8H [facility] Last Infusion: 03/04/25 11:23 Dose: Infused Documented By: CELSO Insulin Human Lispro (Insulin Lispro 100 Unit/Ml 3 Ml Vial) 0 unit SUBCUT QIDACHS [facility]; Protocol Last Admin: 03/04/25 12:04 Dose: 2 unit Documented By: CELSO Magnesium Hydroxide (Milk Of Magnesia 30 Ml Oral.Susp) 30 ml PO DAILY PRN PRN Reason: Constipation Melatonin (Melatonin 3 Mg Tablet) 6 mg PO BEDTIME PRN PRN Reason: Insomnia Metformin HCl (Metformin Hcl 500 Mg Tablet) 500 mg PO BIDWM [facility] Last Admin: 03/04/25 07:49 Dose: 500 mg Documented By: CELSO Morphine Sulfate (Morphine Sulfate 4 Mg/Ml Cartridge) 4 mg IVPUSH Q4H PRN; Protocol PRN Reason: Pain, Severe (Pain Scale 7-10) Last Admin: 03/04/25 09:57 Dose: 4 mg Documented By: CELSO Oxycodone HCl (Oxycodone Hcl Immed Release 5 Mg Tablet) 5 mg PO Q6H PRN PRN Reason: Pain, Moderate(Pain Scale 4-6) Last Admin: 03/02/25 08:17 Dose: 5 mg Documented By: CELSO Pharmacy Consult (Consult Rx Vancomycin Dosing) 1 each MISCELLANE DAILY PRN PRN Reason: Consult order Sitagliptin Phosphate (Sitagliptin Phosphate 100 Mg Tablet) 100 mg PO DAILY [facility] Last Admin: 03/04/25 07:49 Dose: 100 mg Documented By: CELSO Sodium Chloride (0.9 % Sodium Chloride Flush 3 Ml Syringe) 3 ml IVFLUSH QSHIFT [facility] Last Admin: 03/04/25 07:49 Dose: 3 ml Documented By: CELSO Labs 03/03/25 06:46 03/04/25 06:50 Labs: Laboratory Results - last 24 hr 03/03/25 03/03/25 03/04/25 16:07 20:37 06:50 Estim Creat Clear Calc 276.6 Estimated GFR > 60 POC Glucose 191 H 182 H Random Vancomycin 12.5 L 03/04/25 03/04/25 03/04/25 07:12 11:08 16:13 Estim Creat Clear Calc Estimated GFR POC Glucose 180 H 185 H 141 H Random Vancomycin Microbiology Microbiology Results: Microbiology 03/02/25 19:40 Blood Culture - Preliminary Blood - Venous No growth after 24 hours. 03/02/25 19:40 Blood Culture - Preliminary Blood - Venous No growth after 24 hours. 03/01/25 12:03 Blood Culture - Preliminary Blood - Venous No growth after 48 hours. 03/01/25 12:03 Blood Culture - Preliminary Blood - Venous No growth after 48 hours. Assessment and Plan (1) Candidiasis of perineum: Status: Acute Plan Pt is a 30-year-old male with no reported significant PMH who presents to the ED with?worsening scrotal swelling, rash, and pain. Pt is admitted to the hospital for treatment and further evaluation of candidal intertrigo that failed outpatient therapy and in the setting of new onset type 2 diabetes. Candidal intertrigo Erythema, swelling, tenderness, and white plaques on scrotum and intertriginous folds Failed outpatient therapy at urgent care on Tuesday and ED on Tuesday Likely worsened by uncontrolled diabetes and obesity class III Nursing noticed possible pus when cleaning this morning CT of abd/pelvis showing abnormally enlarged inguinal lymph nodes bilaterally, likely reactionary Scrotal ultrasound showed scrotal wall edema without evidence of necrotizing fasciitis; negative for acute testicular torsion, epididymo-orchitis, or abnormal fluid collection Continue topical ketoconazole b.i.d., fluconazole 100 mg daily x1 more day Urology consultation Symptomatic treatment Sepsis Pt met sepsis criteria with fever and tachycardia yesterday evening Repeat blood cx drawn, lactic acid 2.2 with repeat 1.0 after IVF; no hypotension Antibiotics then switched from ceftriaxone to vanc and Zosyn Blood culture so far negative after 24 hours ID consulted, recommended Augmentin and doxycycline x1 week for possible cellulitis/folliculitis Suicidal ideation Pt endorsed SI without plan to nursing Has been ongoing for quite a while though duration unclear Has outpatient therapist he sees weekly; has not endorsed SI to them Not on any mood stabalizers 1:1 sitter; safety tray Care team eval once medically cleared Question of UTI Urine cultures with strep viridans 10,000-50,000 Pt being treated with antibiotics as above New onset diabetes type 2 A1c 10.8 Started on metformin 500 mg b.i.d. and Jardiance 100 mg daily Monitor POCs Diabetic diet, SSI Will need to establish with new PCP for outpatient diabetic management Transaminitis Mildly elevated, improving, baseline unclear Pt without abdominal pain Likely secondary to fatty liver Obesity class III BMI 55.2 Weight loss encouraged Would benefit from GLP-1 meds Full Code DVT Prophylaxis: Lovenox Will require continued hospitalization for treatment of?worsening candidal intertrigo that failed oupatient therapy likely due to uncontrolled new onset diabetes. Quality Stroke Does the patient have a stroke diagnosis?: No VTE Prior VTE?: No VTE Risk Level:: Medical - moderate - high VTE Device Contraindication: Treatment Not Indicated VTE Drug Contraindication: N/A - Med Ordered
[2025-03-04 20:00] VITALS: BP 141/94; PULSE 107; RESP 18; TEMP 36.4; O2SAT 94
[2025-03-04 20:56] LABS: Glucose, Whole Blood 163 mg/dL (60-115)
[2025-03-05 00:02] VITALS: PULSE 103; RESP 18; O2SAT 92
[2025-03-05 04:00] VITALS: BP 160/90; PULSE 95; RESP 20; TEMP 36.9; O2SAT 93
[2025-03-05] MEDS: oxyCODONE HCl Immed Release 5 MG TABLET PO ×2 (04:02→11:30)
[2025-03-05 07:06] LABS: Glucose, Whole Blood 142 mg/dL (60-115)
[2025-03-05 07:17] VITALS: BP 154/90; PULSE 99; RESP 18; TEMP 36.1; O2SAT 94
[2025-03-05] MEDS: Clotrimazole 1 % Cream 15 GM TUBE 1 APPL TOPICAL (08:25)
[2025-03-05 11:10] LABS: Glucose, Whole Blood 129 mg/dL (60-115)
--- NOTE | 2025-03-05 12:00 | MHC.CM.PN ---
Patient cleared by PT and CARE team. Medically cleared for dc home. Discussed the importance of establishing care w/ a PCP and provided [facility] brochure. Mom is at the bedside and will start calling for an appt today. She will also transport home. PA & RN aware.
--- NOTE | 2025-03-05 12:52 | P.DS_ITS ---
DS: Providers Provider Date of Service: 03/05/25 Date of admission: 03/01/25 14:08 Date of discharge: 03/05/25 Primary care physician: None Physician Consults: 03/03/25 08:11 Consult to Urology Routine Consulting Provider: [facility] Reason for consultation: Worsening candidal intertrigo 03/03/25 12:08 Consult for Sitter Routine Reason for consultation: SI without plan 03/04/25 08:10 Consult to Infectious Diseases Routine Consulting Provider: [facility] Reason for consultation: Candidal intertrigo, SIRS, UA-; ?IV diflucan 03/04/25 22:52 Consult to Wound Care Routine Reason for consultation: fungal infection with drainage & open areas to groin & scrotum Has provider been notified: Yes 03/04/25 23:14 Inpt CARE Team Crisis Consult Routine Comment: Reason for consultation: Pt with depression and vague SI DS: Diagnosis Discharge Diagnosis (1) Candidiasis of perineum: Status: Acute DS: Summary Hospital Course Hospital Course: From admission HPI: Date of Service: 03/01/25 Attending physician on admission: Dre Hernandez Chief Complaint: Scrotal redness Pt is a 30-year-old male with no reported significant PMH who presents to the ED with?worsening scrotal swelling, rash, and pain. Pt initially noticed a red and pruritic rash on his scrotum and groin on Tuesday. Tried home antifungal creams to no effect. Rash worsened and became painful and malodorous. Subjective fevers. Presented to urgent care on Tuesday and prescribed nystatin cream and oral fluconazole. Symptoms persisted despite treatment and pt then presented to the ED on Tuesday where he was prescribed cephalexin and clotrimazole betamethasone cream. Pt found no relief from treatment and yesterday rash developed white plaques, so pt re-presented today due to worsening symptoms. Currently denies fever or chills. No other systemic symptoms. ED provider contacted both Infectious Disease and Urology who both felt major concern was to achieve diabetic control. Recommendation was for topical clotrimazole and fluconazole x5 days. In the ED pt was afebrile but with elevated HR of 98. Labs were significant for random glucose 238, A1c 10.8, AST 73, and ALT 62, CRP 2.15. UA pending. Pt was treated in the ED with IVF. Pt is admitted to the hospital for treatment and further evaluation of candidal intertrigo that failed outpatient therapy and in the setting of new onset type 2 diabetes. Hospital course: Pt was admitted to the hospital for acute candidiasis perineum that failed outpatient therapy, for which he was treated with both oral fluconazole and topical clotrimazole. Hospital course was complicated by pt spiking a fever and meeting sepsis criteria, and empirically treated with IV Zosyn and vancomycin. SIRS criteria resolved and CTA of abdomen/pelvis negative for acute abnormality and scrotal ultrasound was scrotal wall edema without evidence of necrotizing fasciitis, as well as negative for acute testicular torsion, epididymal orchitis, or abnormal fluid collection. Pt was seen and evaluated by Urology as well as Infectious Disease who suggested switching to p.o. antibiotics. Pt will be discharged on clotrimazole 1% cream b.i.d. times 10 days, Augmentin 875 mg twice a day x5 days, and doxycycline 100 mg b.i.d. x5 days. During hospital stay pt also endorsed passive SI which he stated and been ongoing since he was 8 years old. Pt follows outpatient with therapist weekly, though reports has not endorsed SI to them. Currently not on any mood stabilizers. Pt was cleared by care team and reports no longer feels passive SI. He will be referred to outpatient clinician for possible home medications. For new onset diabetes, pt was started on metformin and Jardiance, as well as covered with a sliding scale insulin. Pt's sugars were moderately well- controlled in the hospital, and pt is strongly encouraged to adhere to a diabetic diet. Will be sent home on prescriptions metformin 500 mg b.i.d. and sitagliptin 100 mg daily, as well as with glucose monitoring supplies. Pt will need to establish with PCP and/or endocrinology for outpatient diabetic management. Time Attestation Discharge Coordination Time (in mins): 40 Quality: Safe Use of Opioids Does Pt have an Active Cancer Diagnosis on the Problem List?: No Quality: Stroke Does the patient have a stroke diagnosis?: No Physical Exam Exam: Exam: General: AOx3, no acute distress. Looks uncomfortable Resp: CTA bilaterally CVS: S1, S2, RRR GI: +BS, NT, no distention, obese Skin: Warm, dry Neuro: Cranial nerves II-XII grossly intact bilaterally. Motor grossly intact bilaterally : Improved swelling, erythema, and tenderness to groin, scrotum, and in in tertriginous folds; satellite lesions Extremities: No edema Psych: Flat affect Vital Signs: Vital Signs: Last Vital Signs Temp 96.9 F 03/05/25 07:17 Pulse 99 03/05/25 07:17 Resp 18 03/05/25 07:17 BP 154/90 H 03/05/25 07:17 Pulse Ox 94 03/05/25 07:17 O2 Del Method Room Air 03/05/25 07:17 BMI result Body Mass Index 55.2 DS: Data Data Completed and Pending Labs on day of discharge: Laboratory Results - last 24 hr 03/04/25 03/04/25 03/05/25 16:13 20:52 07:03 POC Glucose 141 H 163 H 142 H 03/05/25 11:07 POC Glucose 129 H Preliminary micro results at discharge 03/02/25 19:40 Blood Culture - Preliminary Blood - Venous No growth after 48 hours. 03/02/25 19:40 Blood Culture - Preliminary Blood - Venous No growth after 48 hours. 03/01/25 12:03 Blood Culture - Preliminary Blood - Venous No growth after 48 hours. 03/01/25 12:03 Blood Culture - Preliminary Blood - Venous No growth after 48 hours. Discharge Plan Discharge Anticipated Discharge Date/Time: 03/05/25 12:07 Patient Disposition: Home, Self-Care Discharge Diagnosis: Acute peroneal candidiasis Referrals: Physician,None [Primary Care Provider, Medical] - 1 Week Discharge Medications: New oxycodone 5 mg capsule 5 mg PO Q8H PRN (Reason: pain, severe) Qty: 12 0RF Rx Instructions: Partial Fill upon patient request. Take one capsule up to three times daily for severe pain. fluconazole 100 mg tablet 100 mg PO DAILY Qty: 2 0RF Rx Instructions: Take one tablet daily for the next 2 days clotrimazole 1 % cream 1 appl topical BID Qty: 45 0RF Rx Instructions: Apply to affected area twice a day for the next 10 days, set to end on 03/15 doxycycline monohydrate 100 mg capsule 100 mg PO DAILY Qty: 11 0RF Rx Instructions: Take on capsule twice a day for the next five days, set to complete on 03/10. Begin taking on evening of 03/05. amoxicillin-pot clavulanate 875-125 mg tablet 1 tab PO BID Qty: 11 0RF Rx Instructions: Take one tablet twice a day for the next five days, set to end on 03/10. Begin taking this evening 03/05 metformin 500 mg tablet 500 mg PO BID Qty: 180 0RF Rx Instructions: Take one tablet twice a day. Take with food. (DME) FreeStyle Lite Strips Strip Qty: 100 0RF Rx Instructions: Test four times a day or as directed. (DME) blood-glucose meter [FreeStyle Lite Meter] Kit Qty: 1 0RF Rx Instructions: As Directed alcohol swabs Pads, Medicated 1 pad TOPICAL QIDACHS Qty: 100 0RF Rx Instructions: Use four times a day or as directed. (DME) lancets [FreeStyle Lancets] 28 gauge misc Qty: 100 0RF Rx Instructions: Test four times a day or as directed. sitagliptin [Zituvio] 100 mg tablet 100 mg PO DAILY Qty: 30 0RF Rx Instructions: Take one tablet daily. Discontinued cephalexin 500 mg capsule 500 mg PO QID 5 Days Qty: 20 0RF clotrimazole-betamethasone 1-0.05 % cream 1 appl topical BID 14 Days Qty: 45 0RF oxycodone 5 mg tablet 5 mg PO Q6H PRN (Reason: pain) Qty: 10 0RF Rx Instructions: Partial Fill upon patient request. Discharge Orders: Discharge Order (Routine); Ordered 03/05/25 Ordered By: Dave Rose Activity on Discharge: As tolerated Stand Alone Forms: Patient Portal Discharge page Print Language: Belarusian Activity Restrictions/Additional Instructions: Topical Wound Care Recommendations: Provide adequate and supplemental nutrition.? When applicable maintain blood glucose levels per Providers order. Skin Folds - Cleanse with PH balance wipes, pat dry with soft cloth.? Apply antifungal power to assist with moisture management.? Be sure to dust of excess powder to prevent caking on skin and in folds. Apply per provider orders. Tuck Interdry AG Sheet into skin fold to wick and translocate moisture away from skin fold.? Be sure to leave at least 2 inch of fabric exposed outside of skin fold.? Change after 5 days or when soiled. Scrotum - Cleanse with soap and water be sure to cleanse within skin folds, pat dry with soft cloth.? Apply antifungal power to assist with moisture management.? Be sure to dust of excess powder to prevent caking on skin and in folds. Apply barrier cream on top to protect from chronic moisture and allow for healing. Apply Twice daily. Care Plan Goals: See below Health Concerns: Acute candidiasis of perineum Cellulitis/folliculitis Diabetes type 2 with hyperglycemia Plan of Treatment: You were admitted to the hospital for fungal infection of the perineal area with likely superimposed cellulitis/folliculitis, for which he was treated with antifungals and antibiotics. You were seen and evaluated by both Urology and Infectious Disease. You were also diagnosed with new onset type 2 diabetes. For fungal infection of peroneal area, you will be prescribed oral fluconazole 100 mg daily x2days, as well as clotrimazole cream that should be applied twice a day for the next 10 days. You should keep the area clean and dry, and use absorbing pads as instructed by nursing. For likely superimposed cellulitis/folliculitis, take Augmentin 875 mg twice a day for the next 5 days. Began 1st dose this evening and finish course of antibiotics on 03/11. You should follow up PCP in 1-2 weeks. For new onset type 2 diabetes, you will be prescribed metformin 500 mg twice a day to be taken with meals, sitagliptin 100 mg daily, as well as diabetic monitoring supplies. You should adhere to a diabetic diet and weight loss is strongly encouraged. You would likely benefit from a GLP-1 medication (Ozempic, Wegovy) which you could pursue once you establish with PCP. For depression with passive SI, you were seen, evaluated, and cleared by the Care Team and received referral for outpatient providers. Assessment: See discharge summary Patient Instructions: Doxycycline (By mouth), Amoxicillin/Clavulanate Potassium (By mouth), Fluconazole (By mouth), Anh Auris Infection (GEN) Discharge Date/Time: 03/05/25 13:20
--- NOTE | 2025-03-05 13:18 | HO.WOUND ---
Wound Consult: Initial 30yr old?male admitted to [facility] [place]01/25- See progress notes and H&P for detailed history.? Wound consult placed for fungal dermatitis.? Patient agreeable to assessment and photo documentation.? Arrival to bedside patient reports significant discomfort to the scrotum penial area with movement. Assessment reveals that his penis is inverted this is his baseline, he has hard skin folds. There is yeast odor noted and significant skin break down and fungal dermatitis noted. He is being treated systemically at this time in addition to topical antifungal cream. The penis / scrotal area will benefit from powder to aid in moisture elimination TT to Provider to order. Patient reports he is newly diagnosed with Diabetes we discussed Diabetes and skin health. We discussed the importance of routine cleansing daily with soap and water and within skin folds. Interdry education provided. Skin Folds, Groin and Scrotum Etiology: ?Fungal Dermatitis and Skin Breakdown Wound Bed: diffuse rash with red macular papular satellite lesions noted some are pus filled evidence of folliculitis Drainage / Odor: yeast odor noted Edges: ? mirrored and advancing Muna wound: pink hyperpigmented intact tissue ? No Induration, Fluctuance or Warmth noted Pain: pain reported Goals of Treatment: ? continue to treat systemically and topically Recommendations: Provide adequate and supplemental nutrition.? When applicable maintain blood glucose levels per Providers order. Skin Folds - Cleanse with PH balance wipes, pat dry with soft cloth.? Apply antifungal power to assist with moisture management.? Be sure to dust of excess powder to prevent caking on skin and in folds. Apply per provider orders. Tuck Interdry AG Sheet into skin fold to wick and translocate moisture away from skin fold.? Be sure to leave at least 2 inch of fabric exposed outside of skin fold.? Change after 5 days or when soiled. Scrotum - Cleanse with soap and water be sure to cleanse within skin folds, pat dry with soft cloth.? Apply antifungal power to assist with moisture management.? Be sure to dust of excess powder to prevent caking on skin and in folds. Apply barrier cream on top to protect from chronic moisture and allow for autolytic healing. Apply Twice daily. Re-consult wound care Nurse for wound deterioration or wound changes.
== END 2025-03-05 13:20 | disposition home or self-care (01) | DRG 385 ==
LOC: HO.ED 14:07 → HO.EDOVER 14:11 → HO.S3 15:57
PROVIDERS: Admitting Provider Student in an Organized Health Care Education/Training Program; Emergency Provider Emergency Medicine; Visit Provider Student in an Organized Health Care Education/Training Program
DX: B37.2 Candidiasis of skin and nail (principal); A41.9 Sepsis, unspecified organism; R45.851 Suicidal ideations; K76.0 Fatty (change of) liver, not elsewhere classified; Z68.43 Body mass index [BMI] 50.0-59.9, adult; E11.65 Type 2 diabetes mellitus with hyperglycemia; B95.4 Other streptococcus as the cause of diseases classified elsewhere; L73.9 Follicular disorder, unspecified; N39.0 Urinary tract infection, site not specified; E66.813 Obesity, class 3; Z71.3 Dietary counseling and surveillance; Z79.84 Long term (current) use of oral hypoglycemic drugs; Z79.899 Other long term (current) drug therapy
CPT/HCPCS: 36415; 74176; 76870; 80048; 80053; 80076; 80202; 81001; 82565; 82947; 83036; 83605; 85025; 85027; 86140; 87040; 87086; 87389; 94660; 97161; 99285; J0696; J2270; J2543; J3373; J3374; J7120; S9485

== ENCOUNTER 2025-03-01 14:08 | Outpatient (BNV) | payer BC, SELFPAY | END 2025-03-03 07:54 | PROVIDERS: Admitting Provider Student in an Organized Health Care Education/Training Program; Emergency Provider Emergency Medicine; Visit Provider Radiology Vascular & Interventional Radiology | DX: R59.0 Localized enlarged lymph nodes (principal); N49.2 Inflammatory disorders of scrotum | CPT/HCPCS: 74176; 76870 ==

== ENCOUNTER → 2025-03-01 14:08 | Outpatient (BNV) | payer BC, SELFPAY | PROVIDERS: Admitting Provider Student in an Organized Health Care Education/Training Program; Emergency Provider Emergency Medicine; Visit Provider Internal Medicine | DX: E11.65 Type 2 diabetes mellitus with hyperglycemia (principal); N50.82 Scrotal pain | CPT/HCPCS: 99232 ==

== ENCOUNTER → 2025-03-01 14:08 | Outpatient (BNV) | payer BC, SELFPAY | PROVIDERS: Admitting Provider Student in an Organized Health Care Education/Training Program; Emergency Provider Emergency Medicine; Visit Provider Urology | DX: E11.65 Type 2 diabetes mellitus with hyperglycemia (principal); N50.82 Scrotal pain | CPT/HCPCS: 99254 ==

== ENCOUNTER → 2025-03-01 14:08 | Outpatient (BNV) | payer BC, SELFPAY | PROVIDERS: Admitting Provider Student in an Organized Health Care Education/Training Program; Emergency Provider Emergency Medicine; Visit Provider Student in an Organized Health Care Education/Training Program | DX: B37.49 Other urogenital candidiasis (principal) | CPT/HCPCS: 99223; 99232; 99499 ==